=== PATIENT | female | born 1950 | race Caucasian/White ===

== ENCOUNTER → 2017-09-29 12:49 | Outpatient (CLI) | payer MEDICARE ==
[2010-04-10 08:49] VITALS: BMI 27.5
== END | disposition home or self-care (01) ==
LOC: D.RAD 12:49
DX: R13.12 Dysphagia, oropharyngeal phase (principal)

== ENCOUNTER → 2017-11-11 08:36 | Outpatient (CLI) | payer MEDICARE ==
[2010-04-10 08:49] VITALS: BMI 27.5
== END | disposition home or self-care (01) ==
LOC: D.RAD 08:36
DX: R13.10 Dysphagia, unspecified (principal)

== ENCOUNTER → 2018-08-18 21:38 | Outpatient (CLI) | payer MEDICARE ==
[2010-04-10 08:49] VITALS: BMI 27.5
== END | disposition home or self-care (01) ==
LOC: D.MAMMO 13:00
DX: Z12.31 Encounter for screening mammogram for malignant neoplasm of breast (principal)

== ENCOUNTER → 2020-11-07 10:13 | Outpatient (CLI) | payer MEDICARE ==
[2020-06-21 13:11] VITALS: BMI 28.3
[~2020-11-07 10:13] MED LIST: ASPIRIN81 MG PO; BISOPROLOL-HCT1 EAC1 PO; DECADRON4 MG PO; PRAVACHOL20 MG PO; TESSALON PERLE100 MG PO; VENTOLIN HFA [SP8 GM INH; ZETIA10 MG PO
== END | disposition home or self-care (01) ==
LOC: D.RT 10:00
PROVIDERS: ATTEND Internal Medicine Pulmonary Disease
DX: J44.9 Chronic obstructive pulmonary disease, unspecified (principal)

== ENCOUNTER → 2020-12-06 14:14 | Outpatient (CLI) | payer MEDICARE ==
[2020-06-21 13:11] VITALS: BMI 28.3
== END | disposition home or self-care (01) ==
LOC: D.CT 14:14
PROVIDERS: ATTEND Internal Medicine Pulmonary Disease
DX: R91.1 Solitary pulmonary nodule (principal)

== ENCOUNTER 2020-12-19 05:27 | Day surgery (SDC) | payer MEDICARE ==
--- NOTE | 2020-12-18 15:16 | NUR ---
APPOINTMENT CONFIRMED
[~2020-12-19] VITALS: Ht 160 cm; Wt 77.3 kg
[2020-12-19 05:49] LABS: BASOPHILS 0.3 % (0-2); EOSINOPHILS 1.6 % (0-7); HEMATOCRIT 39.7 % (36.0-48.0); HEMOGLOBIN 12.5 g/dL (12-16); IMMATURE GRANULOCYTES 0.2 % (0-5); LYMPHOCYTE ABS# 1.63 10x3/uL (1.18-3.74); LYMPHOCYTES 18.5 % (15-50); MCH 27.1 pg (26.0-34.0); MCHC 31.5 g/dL (31.0-37.0); MCV 85.9 fL (80.0-100.0); MEAN PLATELET VOLUME 9.1 fL (7.4-10.4); NEUTROPHILS 70.4 % (40-80); RBC 4.62 10x6/uL (4.00-5.40); RDW 16.5 % (11.5-14.5); WBC 8.8 10x3/uL (4.8-10.8)
[2020-12-19 05:52] LABS: PLATELET COUNT 223 10x3/uL (130-400)
[2020-12-19 05:59] LABS: INR 1.07 (0.85-1.17); PROTIME 12.8 SECONDS (11.6-15.0)
[2020-12-19 06:00] LABS: APTT 34.8 SECONDS (22.8-39.4)
[2020-12-19 06:01] LABS: ANION GAP 12.3 mmol/L (8-16); CALCIUM 9.8 mg/dL (8.5-10.1); CARBON DIOXIDE 28.8 mmol/L (21.0-32.0); CREATININE - SERUM 1.1 mg/dL (0.6-1.3); POTASSIUM - SERUM 4.1 mmol/L (3.5-5.1)
[2020-12-19] MEDS ORDERED: VICTOZA0.6 MG/0.1 SQ (06:38)
[2020-12-19] MEDS ORDERED: GLIMEPIRIDE4 MG PO (06:39)
[2020-12-19] MEDS ORDERED: DULERA 200 MCG8.8 GM INH (06:39)
[2020-12-19] MEDS ORDERED: PRENAVITE1 TAB PO (06:40)
[2020-12-19] MEDS ORDERED: ZIAC 5-6.25 MG1 TAB PO (06:40)
[2020-12-19] MEDS ORDERED: MERIBIN5 MG PO (06:40)
[2020-12-19] MEDS ORDERED: IMODIUM2 MG PO (06:41)
[2020-12-19] MEDS ORDERED: RESTORIL15 MG PO (06:41)
[2020-12-19] MEDS ORDERED: OMEPRAZOLE40 MG PO (06:41)
[2020-12-19] MEDS ORDERED: CELEBREX200 MG PO (06:41)
[2020-12-19] MEDS ORDERED: VITAMIN D325 MC1 PO (06:42)
[2020-12-19] MEDS ORDERED: ASCORBIC ACID500 MG PO ×2 (06:42)
[2020-12-19 06:48] VITALS: Ht 160 cm; Wt 77.3 kg
--- NOTE | 2020-12-19 09:47 | NUR ---
PT DOES NOT NEED TO BE NPO PER SPECIALS NURSE
--- NOTE | 2020-12-19 12:20 | NUR ---
PT IS RESTING QUIETLY IN BED. DENIES PAIN/NEEDS AT THIS TIME. WILL CONTINUE TO MONITOR.
--- NOTE | 2020-12-19 13:00 | NUR ---
DC INSTRUCTIONS GIVEN TO PT. STATES UNDERSTANDING. DC'D IV CATH FULLY INTACT.
--- NOTE | 2020-12-19 13:39 | NUR ---
PT LEFT UNIT VIA WC AT 1335
== END 2020-12-19 13:35 | disposition home or self-care (01) ==
LOC: D.SP 05:27 → D.CT 08:00 → D.SP 13:35
PROVIDERS: ATTEND Radiology Diagnostic Radiology
DX: R91.1 Solitary pulmonary nodule (principal)

== ENCOUNTER → 2021-01-02 09:31 | Outpatient (CLI) | payer MEDICARE ==
[2020-12-19 06:48] VITALS: BMI 30.1
[~2021-01-02 09:31] MED LIST changes: +ASCORBIC ACID500 MG PO; +CELEBREX200 MG PO; +DULERA 200 MCG8.8 GM INH; +GLIMEPIRIDE4 MG PO; +IMODIUM2 MG PO; +MERIBIN5 MG PO; +OMEPRAZOLE40 MG PO; +PRENAVITE1 TAB PO; +RESTORIL15 MG PO; +VICTOZA0.6 MG/0.1 SQ; +VITAMIN D325 MC1 PO; +ZIAC 5-6.25 MG1 TAB PO
--- NOTE | 2021-01-04 13:51 | TEE ---
PATIENT:SILVA BARKSDALE MEDICAL RECORD: [id number] LOCATION:D.[facility] AGE OF PATIENT: 70 ADMISSION DATE: 01/02/21 SEX: F REFERRING PHYSICIAN: INTERPRETING PHYSICIAN: BETZY JOHNSON MD TRANSESOPHAGEAL ECHOCARDIOGRAM Date: HESHAM CHARGE INDICATIONS: PREMEDICATIONS: PATIENT'S RESPONSE PROCEDURE DOPPLER MEASUREMENTS: LVIT LA PA RA LVOT RVOT Asc. Ao AV Gradient Peak AV Mean AV Area MV Gradient Peak MV Mean MV Area INTERPRETATION: Doppler: 2-D: COLOR FLOW DOPPLER NORMAL SALINE STUDY: MISCELLANOUS: DIAGNOSIS: PLAN: Community Facilitator: Special Police: COMMENTS: DATE OF SERVICE: 01/02/2021 NUCLEAR STRESS TEST Gated is normal with normal wall motion, normal wall thickening, calculated EF 68%. SPECT imaging: SPECT imaging was performed. Short axis view shows a fixed defect from the inferior base down the mid inferior wall without significant reversibility. This confirmed the horizontal axis with a fixed defect from the TRANSESOPHAGEAL ECHOCARDIOGRAM REPORT [id number] LENORE BARKSDALE inferior base down the mid inferior wall. Vertical axis shows good uptake along the lateral wall and septum. FINAL IMPRESSION: 1. Normal gated, normal wall motion, normal EF 68%. 2. Abnormal SPECT imaging with a fixed inferior base that takes in the mid inferior wall defect without significant reversibility. IMPRESSION: The scan is consistent with a previous history of coronary artery disease. No active ischemia is seen. LV function remains normal. Continued medical management and risk factor modification is recommended. TRANSINT:[id number] Voice Confirmation ID: [id number] DOCUMENT ID: [id number] at 1351 CC: [id number] DICTATION DATE: 01/03/21 09 BATTER MIXER HELPER: 01/04/21 0235 [facility] CLI 01/02/21 [id number] [place] [address]
== END | disposition home or self-care (01) ==
LOC: D.MRI 09:31
PROVIDERS: ATTEND Internal Medicine Interventional Cardiology
DX: C80.1 Malignant (primary) neoplasm, unspecified (principal); Z01.818 Encounter for other preprocedural examination

== ENCOUNTER 2021-01-10 13:35 | Inpatient (IN) | payer MEDICARE ==
[~2021-01-10] VITALS: Ht 160 cm; Wt 73.4 kg
[~2021-01-10 13:35] MED LIST changes: +BISOPROLOL/HCTZ; -ZIAC 5-6.25 MG1 TAB PO
[2021-01-10] MEDS ORDERED: GALZIN50 MG PO (14:11)
[2021-01-10] MEDS ORDERED: TEMOVATE 0.05%15 G1 TOPICAL (14:12)
[2021-01-10] MEDS ORDERED: CLOTRIMAZOLE-BE30 ML TOPICAL (14:12)
[2021-01-10] MEDS ORDERED: SYNALAR 0.01 %60 ML TOPICAL (14:13)
[2021-01-10] MEDS ORDERED: DIFLUCAN100 MG PO (14:14)
[2021-01-10] MEDS ORDERED: NYSTATIN100000 UN4 PO (14:15)
[2021-01-10] MEDS ORDERED: DULERA 200 MCG8.8 GM INH (14:16)
[2021-01-10 16:05] LABS: HEMATOCRIT 37.9 % (36.0-48.0); HEMOGLOBIN 12.4 g/dL (12-16); MCH 27.5 pg (26.0-34.0); MCHC 32.7 g/dL (31.0-37.0); MCV 83.9 fL (80.0-100.0); MEAN PLATELET VOLUME 6.9 fL (7.4-10.4); RBC 4.51 10x6/uL (4.00-5.40); WBC 9.1 10x3/uL (4.8-10.8)
[2021-01-10 16:18] LABS: INR 1.15 (0.85-1.17); PROTIME 13.6 SECONDS (11.6-15.0)
[2021-01-10 16:19] LABS: APTT 33.7 SECONDS (22.8-39.4)
[2021-01-10 16:24] LABS: ALBUMIN 3.8 g/dL (3.4-5.0); ANION GAP 9.9 mmol/L (8-16); BILIRUBIN - TOTAL 0.2 mg/dL (0.2-1.3); CALCIUM 9.2 mg/dL (8.5-10.1); CARBON DIOXIDE 31.8 mmol/L (21.0-32.0); CREATININE - SERUM 1.1 mg/dL (0.6-1.3); POTASSIUM - SERUM 3.7 mmol/L (3.5-5.1)
[2021-01-10 17:12] LABS: BILIRUBIN NEGATIVE (NEGATIVE); KETONE NEGATIVE (NEGATIVE); NITRITE NEGATIVE (NEGATIVE); UROBILINOGEN NORMAL mg/dL (< 2)
[2021-01-12] VITALS (57 sets, daily range): BP systolic 91–137; BP diastolic 43–81; BMI 30.5
--- NOTE | 2021-01-12 11:21 | NUR ---
1017: REC'D TO ROOM CV 03 VIA BED. AROUSES TO VERBAL STIMULI. CONNECTED TO MONITOR AND VS OBTAINED. SEE FLOWSHEET FOR VS AND ASSESSMENT.
[2021-01-13] VITALS (90 sets, daily range): BP systolic 94–144; BP diastolic 25–97
[2021-01-13 05:27] LABS: HEMATOCRIT 34.4 % (36.0-48.0); HEMOGLOBIN 11.4 g/dL (12-16); MCH 27.5 pg (26.0-34.0); MCHC 33.1 g/dL (31.0-37.0); MCV 83.1 fL (80.0-100.0); MEAN PLATELET VOLUME 6.7 fL (7.4-10.4); RBC 4.14 10x6/uL (4.00-5.40); WBC 11.9 10x3/uL (4.8-10.8)
[2021-01-13 05:47] LABS: ANION GAP 10.2 mmol/L (8-16); BILIRUBIN - TOTAL 0.51 mg/dL (0.2-1.3); CALCIUM 8.2 mg/dL (8.5-10.1); CARBON DIOXIDE 29.6 mmol/L (21.0-32.0); CREATININE - SERUM 1.1 mg/dL (0.6-1.3); POTASSIUM - SERUM 3.8 mmol/L (3.5-5.1); PROTEIN - SERUM 6.7 g/dL (6.4-8.2)
--- NOTE | 2021-01-13 07:30 | OP ---
PATIENT NAME: SILVA BARKSDALE MEDICAL RECORD: [id number] :54 [id number] AD[facility] DATE:01/12/21 SURGEON: KAHI FAN MD DATE OF OPERATION: 01/12/2021 SURGEON: Khai Fan MD. PROCEDURES PERFORMED: 1. Right lower lobe lobectomy. 2. Mediastinal lymph node dissection. 3. Bronchoscopy. PREOPERATIVE DIAGNOSIS: Non-small cell lung cancer. POSTOPERATIVE DIAGNOSIS: Squamous cell carcinoma, superior segment, right lower lobe, T2N0M0. ANESTHESIA: Double lumen general endotracheal anesthesia and epidural. BLOOD LOSS: 25 mL. SPECIMENS: 1. Wedge resection of the tumor for frozen section. 2. Right lower lobe lobectomy. 3. Lymph nodes from anterior lobar and superior hilar, no sizable lymph node seen in the subcarinal or inferior pulmonary ligament region nor in the paratracheal lymph node station. POSTOPERATIVE CONDITION: Stable. COMPLICATIONS: None. DISPOSITION: ICU. OPERATIVE FINDINGS: 1. Bronchoscopy with no endobronchial tumors. Good double lumen endotracheal tube position, subsequently repositioned after opening the chest. 2. Frozen section, squamous cell carcinoma. The tumor dimpled the visceral pleura, but was not attached to the parietal pleura and there was no pleural effusion. 3. Bronchus airtight under water. 4. The lymph nodes appeared to be anthracotic, there was no torsion of the middle lobe, the lung filled the chest well. 5. Cryotherapy posterior 4 through 8 nerve root. INDICATION: Lung cancer. PROCEDURE IN DETAIL: The patient was brought to the operating suite. General anesthesia was obtained. The patient was turned to left lateral decubitus position with appropriate padding. Right lung was deflated. Right posterolateral thoracotomy incision was made. Subcutaneous tissue and muscle layer were divided and then muscles were retracted anteriorly. The small section of the posterior 6th rib was resected to allow a trapdoor type thoracotomy and the pleural cavity was entered. The tumor fell away from the chest wall. No involvement of the parietal pleura. The superior segment had OPERATIVE REPORT [id number] SILVA BARKSDALE good fissures and therefore wedge resection was performed with stapling device. It returned squamous cell carcinoma. The pulmonary artery was dissected out and the fissure branches to the lower lobe were divided. Inferior pulmonary vein was divided after confirming the presence of the middle lobe drainage to the upper pulmonary vein and then the bronchus was clamped. The lung inflated, bronchus divided. After removing the tumor, lymph nodes were taken. The lung was reinflated. It was airtight. One single pledgeted stitch at the hilum was performed. Progel was used along the hilum as well. Chest tubes were placed anteriorly and posteriorly. Chest was closed with pericostals, 2 running, muscle layers, subcutaneous and subcuticular. The patient in supine, extubated, stable to ICU. TRANSINT:[id number] Voice Confirmation ID: [id number] DOCUMENT ID: [id number] KHAI FAN MD at 0730 CC: CHAD CALIXTO MD and HUDSON HODGSON [id number] DICTATION DATE: 01/12/21 1453 IT FIELD TECHNICIAN: 01/13/21 0202 ADM IN [facility] [address] [id number]
--- NOTE | 2021-01-13 10:46 | NUR ---
1015: L RADIAL ARTERIAL LINE DC'D. MANUAL PRESSURE HELD UNTIL BLEEDING STOPPED. SITE DRESSED WITH 2X2 AND TEGADERM. 1030: R CHEST TUBES REDRESSED. SITES CLEANED WITH BETADINE. BETADINE OINTMENT AND 4X4S APPLIED AND SECURED WITH TEGADERM.
[2021-01-14] VITALS (89 sets, daily range): BP systolic 82–137; BP diastolic 31–60
[2021-01-14 05:07] LABS: HEMATOCRIT 33.5 % (36.0-48.0); MCH 27.6 pg (26.0-34.0); MCHC 32.8 g/dL (31.0-37.0); MCV 84.3 fL (80.0-100.0); MEAN PLATELET VOLUME 6.7 fL (7.4-10.4); RBC 3.98 10x6/uL (4.00-5.40); RDW 16.7 % (11.5-14.5); WBC 11.9 10x3/uL (4.8-10.8)
[2021-01-14 05:22] LABS: ALBUMIN 2.9 g/dL (3.4-5.0); ANION GAP 8.2 mmol/L (8-16); BILIRUBIN - TOTAL 0.87 mg/dL (0.2-1.3); CALCIUM 8.7 mg/dL (8.5-10.1); CARBON DIOXIDE 31.6 mmol/L (21.0-32.0); CREATININE - SERUM 0.9 mg/dL (0.6-1.3); POTASSIUM - SERUM 3.8 mmol/L (3.5-5.1)
--- NOTE | 2021-01-14 23:51 | NUR ---
BLOOD GLUCOSE WAS 44, GAVE APPLE JUICE WITH 1 PACK SUGAR, GLUCOSE RECHECK WAS 58, GAVE APPLE JUICE WITH 2 PACKS SUGAR, GLUCOSE RECHECK WAS 44 AGAIN, GAVE DEXTROSE IV, WILL CHECK BLOOD GLUCOSE IN 1 HOUR. PATIENT IS AOx4, VSS.
[2021-01-15] VITALS (34 sets, daily range): BP systolic 96–130; BP diastolic 42–78
[2021-01-15 05:34] LABS: HEMATOCRIT 34.1 % (36.0-48.0); HEMOGLOBIN 11.3 g/dL (12-16); MCH 27.9 pg (26.0-34.0); MCHC 33.1 g/dL (31.0-37.0); MCV 84.1 fL (80.0-100.0); RBC 4.06 10x6/uL (4.00-5.40); RDW 16.7 % (11.5-14.5); WBC 13.2 10x3/uL (4.8-10.8)
[2021-01-15 05:54] LABS: ALBUMIN 2.8 g/dL (3.4-5.0); ANION GAP 11.8 mmol/L (8-16); BILIRUBIN - TOTAL 0.7 mg/dL (0.2-1.3); CARBON DIOXIDE 29.1 mmol/L (21.0-32.0); POTASSIUM - SERUM 3.9 mmol/L (3.5-5.1); PROTEIN - SERUM 7.3 g/dL (6.4-8.2)
--- NOTE | 2021-01-15 06:41 | NUR ---
PT BLOOD GLUCOSE 56, GIVEN 1 AMP DEXTROSE, GLUCOSE RECHECK WAS 115, PAGED DR FAN TO UPDATES, AWAITING RETURN CALL
--- NOTE | 2021-01-15 07:10 | NUR ---
REPORT RECEIVED FROM POWDER LOADER AND PATIENT CARE ASSUMED. PATIENT LAYING IN BED ON BACK WITH EYES CLOSED AND BREATHING EVENLY. O2 SAT 92 % WITH ROOM AIR. PATIENT NON COMPLIANT WITH NC. VSS. ALL LINES TUBES DRAINS CHECKED AND PATENT. WALKER DRAINING TO GRAVITY CLEAR YELLOW URINE. WILL CONTINUE WITH PLAN OF CARE. SR UP X 2 BED IN LOW POSITION AND CALL LIGHT IN REACH.
--- NOTE | 2021-01-15 08:00 | NUR ---
PATIENT IS AWAKE, ALERT AND ORIENTED X 4. PATIENT COMPLAINS OF NAUSEA. MEDICATED WITH ZOFRAN PER OCT ORDER. REPOSITONED PATIENT ENCOURAGED INCENTIVE SPIROMETER AND DEEP BREATHE AND COUGH. PATIENT STATES THAT SHE JUST DOSNET FEEL GOOD TODAY. DENIES ANY PAIN. PATIENT DID NOT EAT ANY BREAKFAST. ATTEMPTED TO BRING OTHER FOODS OR DRINKS PATIENT DECLINED. WILL CONTINUE TO MONITOR. SR UP X 2 BED IN LOW POSITION AND CALL LIGHT IN REACH.
--- NOTE | 2021-01-15 08:40 | NUR ---
PATIENT STATES SANTOSH DID HELP. WILL CONTINUE TO MONITOR. SR UP X 2 BED IN LOW POSITION AND CALL LIGHT IN REACH.
--- NOTE | 2021-01-15 09:49 | NUR ---
DR PARMAR IN ROOM. NEW ORDERS RECEIVED.
--- NOTE | 2021-01-15 12:35 | NUR ---
PATIENT SITTING UP IN BED DRINKING ENSURE. PATIENT STATES NOT HUNGRY. DENIES NAUSEA. ENCOURAGED PATIENT TO DRINK ENSURE IN ITS ENTIRITY AND USE INCENTIVE SPIROMETRY. DTR AT BS. WILL CONTINUE TO MONITOR. SR UP X 2 BED IN LOW POSITION AND CALL LIGHT IN REACH.
--- NOTE | 2021-01-15 15:05 | NUR ---
DR PLATA REMOVED CHEST TUBES WITHOUT DIFFICULTY VASELINE DRSG APPLIED WITH GUAZE AND TAPE COVERING. PATIENT TOLERATED WELL. AWIATING CXR . PATIENT DENIES ANY NEEDS OR PAIN. SR UP X 2 BED IN LOW POSITION AND CALL LIGHT IN REACH.
--- NOTE | 2021-01-15 16:26 | NUR ---
ANESTHESIA IN ROOM. EPIDURAL DCD WITHOUT DIFFICULTY. NO BLEEDING NOTED. PATIENT TOLERATED WELL. VSS. PATIENT DENIES ANY NEEDS OR PAIN. PATIENT DECLINED BATH TODAY STATING THAT SHE IS TIRED. WILL CONTINUE TO MONITOR. SR UPX 2 BED IN LOW POSITION AND CALL LIGHT IN REACH.
--- NOTE | 2021-01-15 18:00 | NUR ---
PATIENT CONTINUED TO REFUSE BATH. DID A COMPLETE LINEN CHANGE AND RUBBED PATIENT DOWN WITH LOTION. PATIENT THANKS THIS NURSE FOR CARE. PATIENT DENIES ANY NEEDS OR PAIN. VSS. WILL CONTINUE TO MONITOR. SR X 2 BED LOW POSITION AND CALL LIGHT IN REACH.
--- NOTE | 2021-01-15 18:45 | NUR ---
Plasmalyte infusing at 30ml and Neosynephrine at 0.5 mg at shift start. Infusions stopped due to order discontinuation. BP adequate, will continue to monitor patient status. See flowsheets for details.
--- NOTE | 2021-01-15 18:46 | NUR ---
Correction to previous note: Neosynephrine infusing at 0.5 mcg/kg/min at shift change.
--- NOTE | 2021-01-15 19:38 | NUR ---
Patient alert and expresses feeling down about her current situation. Asked to call her son Claudy for her and give update. Contacted Claudy by telephone, expressed patient's concerns and wishes for him to visit, update given on patient status. Visiting hours and information provided, verbalized understanding and intent to visit. Discussed with patient, verbalized appreciation. Reassurance given, plan of care discussed.
--- NOTE | 2021-01-15 21:17 | NUR ---
Environmental modifications made for patient comfort, blanket applied. Patient states she is "not in a good mood right now" regarding her hospitalization and current health status. Declines to elaborate. States she just wants to sleep right now. Options discussed regarding requesting anxiolytic from doctor, patient declines states she doesn't want to take any medication like that right now because she is afraid it will worsen her mood. Benefits of medication and side effects discussed, patient verbalizes understanding, declines at this time. Instructed to notify nurse of concerns/needs.
--- NOTE | 2021-01-15 23:10 | NUR ---
Dr. Shane returned page. Orders received related to tachycardia. Patient informed of plan of care.
[2021-01-16] VITALS (23 sets, daily range): BP systolic 88–148; BP diastolic 51–96; Ht 160 cm; Wt 73.4 kg
--- NOTE | 2021-01-16 06:30 | NUR ---
Shift summary: Pain controlled with prn Percocet, patient denies any needs. HR WNL. Encouraged to use incentive spirometer and turn, cough, and deep breathe.
[2021-01-16 07:10] LABS: ALBUMIN 2.6 g/dL (3.4-5.0); ANION GAP 13.8 mmol/L (8-16); BILIRUBIN - TOTAL 0.59 mg/dL (0.2-1.3); CALCIUM 8.8 mg/dL (8.5-10.1); CARBON DIOXIDE 26.8 mmol/L (21.0-32.0); CREATININE - SERUM 0.9 mg/dL (0.6-1.3); POTASSIUM - SERUM 3.6 mmol/L (3.5-5.1); PROTEIN - SERUM 7.1 g/dL (6.4-8.2)
[2021-01-16 07:12] LABS: BASOPHILS 0.6 % (0-2); EOSINOPHILS 1.9 % (0-7); HEMATOCRIT 33.9 % (36.0-48.0); HEMOGLOBIN 11.1 g/dL (12-16); MCH 27.8 pg (26.0-34.0); MCHC 32.7 g/dL (31.0-37.0); MCV 85.1 fL (80.0-100.0); NEUTROPHILS 77.5 % (40-80); PLATELET COUNT 217 10x3/uL (130-400); RBC 3.98 10x6/uL (4.00-5.40); RDW 16.7 % (11.5-14.5); WBC 10.3 10x3/uL (4.8-10.8)
--- NOTE | 2021-01-16 07:40 | NUR ---
assisted pt up to recliner, tolerated well, breakfast tray served and call light in reach, will monitor
--- NOTE | 2021-01-16 09:10 | NUR ---
son at bedside
--- NOTE | 2021-01-16 11:30 | NUR ---
carrasco catheter DC'd at this time, pt sitting up in recliner with call light in reach, will monitor
--- NOTE | 2021-01-16 12:35 | NUR ---
assisted pt back to bed, tolerated well, call light in reach
--- NOTE | 2021-01-16 13:45 | NUR ---
ambulating in villalobos, tolerated well, pt back in bed, no needs voiced, call light in reach, will monitor
[2021-01-16] MEDS ORDERED: PERCOCET 5-3251 TAB PO (13:57)
--- NOTE | 2021-01-16 17:00 | NUR ---
sitting up in bed eating dinner, no needs voiced, call light in reach, will maria luz
[2021-01-17] VITALS (9 sets, daily range): BP systolic 110–140; BP diastolic 57–99
--- NOTE | 2021-01-17 04:30 | NUR ---
Shift summary: No change in patient status. Ambulated to restroom with standby assist. Encouraged to continue use of incentive spirometer and TCDB. Pain controlled with prn administration.
[2021-01-17 06:55] LABS: HEMATOCRIT 33.2 % (36.0-48.0); HEMOGLOBIN 10.7 g/dL (12-16); MCH 27.4 pg (26.0-34.0); MCHC 32.1 g/dL (31.0-37.0); MCV 85.2 fL (80.0-100.0); MEAN PLATELET VOLUME 7.3 fL (7.4-10.4); RBC 3.89 10x6/uL (4.00-5.40); RDW 16.4 % (11.5-14.5); WBC 11.4 10x3/uL (4.8-10.8)
[2021-01-17 07:13] LABS: ALBUMIN 2.6 g/dL (3.4-5.0); ANION GAP 13.5 mmol/L (8-16); BILIRUBIN - TOTAL 0.53 mg/dL (0.2-1.3); CARBON DIOXIDE 25.2 mmol/L (21.0-32.0); CREATININE - SERUM 0.9 mg/dL (0.6-1.3); POTASSIUM - SERUM 3.7 mmol/L (3.5-5.1); PROTEIN - SERUM 7.2 g/dL (6.4-8.2)
--- NOTE | 2021-01-17 07:20 | NUR ---
ASSISTED PT UP TO TOILET AND THEN TO RECLINER, TOLERATED WELL, NO NEEDS VOICED, CALL LIGHT IN REACH, WILL MONITOR
--- NOTE | 2021-01-17 08:35 | NUR ---
DR FAN HERE SEEING PATIENT
--- NOTE | 2021-01-17 09:30 | NUR ---
CVL DC'D AT THIS TIME
--- NOTE | 2021-01-17 10:10 | NUR ---
PT DISCHARGED HOME WITH SON PRESENT, DISCHARGE INSTRUCTIONS GIVEN AND MEDICATIONS EXPLAINED, PT VERBALIZES UNDERSTANDING, NO DISTRESS NOTED, BELONGINGS SENT WITH PATIENT
--- NOTE | 2021-01-17 16:05 | MORECARE ---
CASE MANAGEMENT DISCHARGE SUMMARY PATIENT: SILVA BARKSDALE UNIT: [id number] ADM DATE: 01/12/21 AGE: 70 : 52 SEX: F ROOM/BED: [facility] AUTHOR: INDRADOC PHYSICIAN: REFERRING PHYSICIAN: HOME FAN MD DATE OF SERVICE: 01/17/21 Case Management Discharge Planning Summary DCP REVIEW SUMMARY ANTICIPATED D/C DATE: 01/17/2021 EXPECTED LOS : 5 CASE STATUS: DCP Initiated INITIAL REVIEW: 01/12/2021 INITIAL REVIEWER: Paula Coyne FINAL DISCHARGE DISPOSITION: : FINAL REVIEWER: FINAL REVIEW DATE: DCP Focus Questions & Answers DCP Screen QUESTION: ANSWER High Risk Factors: : None Walking limitation: Patient stated self rated walking limitation present? : No Age: : 65 - 81 Prior living environment: : Lives with others Disability ranking: : Grade 1: No significant disability DCP Evaluation QUESTION: ANSWER Patient's ability to cope with chronic illness : a. Adequate (0-3 ED visits in 6 mos., adequate financial resources, attends scheduled appts.) Patient's current cognitive status: : *Oriented to person, place, situation, time and present Family / Caregiver's ability to cope with chronic illness: : a. Adequate (ability to meet patient's medical needs, ensures patient attends medical appts.) Patient and/or caregiver agree upon recommended discharge plan? : Yes Physical Status: : Independent with ADL's Family / Caregiver's ability to cope with chronic illness: : a. Adequate (ability to meet patient's medical needs, ensures patient attends medical appts.) Functional screen assessment: : Basic needs can adequately be met by self Does the patient have the ability to pay for or attain post discharge needs / services? : Yes Living Arrangements: : Home with Spouse/Significant Other Is there a likelihood that the patient will require additional services to return to the preadmission environment? : No Equipment needed for post hospitalization: : None Baseline cognitive status: : *Oriented to person, place, situation, time and present Patient with capacity for self-care or can be cared for in same environment as prior to hospitalization? : Yes Results of this evaluation have been discussed with: : Patient Preadmission facility can/cannot provide post hospital level of care needs: : Can - at same level of care as preadmission Physical environment modification needed / anticipated for discharge: : No Medication Management: : Patient states can afford medications Pharmacy name(s): : [facility] Planned post hospital services available for patient? : N/A Does Patient have transportation to get home and to follow-up medical appointments when discharged from the hospital? : Yes Planned post hospital services covered by insurance plan? : N/A Would patient like to participate in any Care Coordination programs (if applicable): : Not applicable Does the patient have electricity at home? : Yes Other Care Coordination programs/comments: : Home, no needs Does the patient have running water in their house? : Yes Equipment in use: : Bedside Commode Equipment in use: : Cane - Single Leg Equipment in use: : Shower Chair Equipment in use: : Walker - Rolling Equipment in use: : Wheelchair Mental health screen: : No mental health history Psychosocial status: : Independent adult (65+) Abuse/Neglect: : None Resources / Services in place: : None DCP Re-evaluation QUESTION: ANSWER Would patient like to participate in any Care Coordination programs (if applicable): : Not applicable PATIENT: SILVA BARKSDALE ENCOUNTER: [id number] MEDICAL RECORD#: [id number] ADMISSION DATE: 01/12/2021 DISCHARGE DATE: 01/17/2021 ATTENDING MD: HOME GUZMAN : AGE: 70 MARITAL STATUS: D DC PLAN ID: [id number] FACILITY: [facility] PRINTED ON: 01/17/21 16:05 CT All edits/amendments must be made on the electronic document DICTATION DATE: 01/17/21 1605 SOCIAL PROFESSIONALS: TAMI 01/17/21 1605 RPT#: [id number] DC DATE:01/17/21 STATUS: DIS IN [facility] [address] [place] [address] END OF REPORT
--- NOTE | 2021-01-17 16:35 | MORECARE ---
CASE MANAGEMENT DISCHARGE SUMMARY PATIENT: SILVA BARKSDALE UNIT: [id number] ADM DATE: 01/12/21 AGE: 70 : 52 SEX: F ROOM/BED: D.[facility] AUTHOR: INDRA,DOC PHYSICIAN: REFERRING PHYSICIAN: HOME FAN MD DATE OF SERVICE: 01/17/21 Case Management Discharge Planning Summary COMMENTS ENTERED DATE: 01/17/21 16:04 CT COMMENT TYPE: Discharge Planning REVIEWER: Paula Coyne Late entry for 01/16/21 13:36 CM met with patient to discuss discharge planning / needs. CM discussed availability of home health, rehab services, and medical equipment. Patient states she has had home health in the past but does not feel like she needs it at this time. States she plans to discharge to home. States home environment is safe. Dr. Gutiérrez is her PCP. She uses [facility]. Denies any discharge needs at this time. CM explained and served DC IMM. Copy on chart. DCP REVIEW SUMMARY ANTICIPATED D/C DATE: 01/17/2021 EXPECTED LOS : 5 CASE STATUS: DCP Initiated INITIAL REVIEW: 01/12/2021 INITIAL REVIEWER: Paula Coyne FINAL DISCHARGE DISPOSITION: : FINAL REVIEWER: FINAL REVIEW DATE: DCP Focus Questions & Answers DCP Screen QUESTION: ANSWER High Risk Factors: : None Walking limitation: Patient stated self rated walking limitation present? : No Age: : 65 - 81 Prior living environment: : Lives with others Disability ranking: : Grade 1: No significant disability DCP Evaluation QUESTION: ANSWER Patient's ability to cope with chronic illness : a. Adequate (0-3 ED visits in 6 mos., adequate financial resources, attends scheduled appts.) Patient's current cognitive status: : *Oriented to person, place, situation, time and present Family / Caregiver's ability to cope with chronic illness: : a. Adequate (ability to meet patient's medical needs, ensures patient attends medical appts.) Patient and/or caregiver agree upon recommended discharge plan? : Yes Physical Status: : Independent with ADL's Family / Caregiver's ability to cope with chronic illness: : a. Adequate (ability to meet patient's medical needs, ensures patient attends medical appts.) Functional screen assessment: : Basic needs can adequately be met by self Does the patient have the ability to pay for or attain post discharge needs / services? : Yes Living Arrangements: : Home with Spouse/Significant Other Is there a likelihood that the patient will require additional services to return to the preadmission environment? : No Equipment needed for post hospitalization: : None Baseline cognitive status: : *Oriented to person, place, situation, time and present Patient with capacity for self-care or can be cared for in same environment as prior to hospitalization? : Yes Results of this evaluation have been discussed with: : Patient Preadmission facility can/cannot provide post hospital level of care needs: : Can - at same level of care as preadmission Physical environment modification needed / anticipated for discharge: : No Medication Management: : Patient states can afford medications Pharmacy name(s): : [facility] Planned post hospital services available for patient? : N/A Does Patient have transportation to get home and to follow-up medical appointments when discharged from the hospital? : Yes Planned post hospital services covered by insurance plan? : N/A Would patient like to participate in any Care Coordination programs (if applicable): : Not applicable Does the patient have electricity at home? : Yes Other Care Coordination programs/comments: : Home, no needs Does the patient have running water in their house? : Yes Equipment in use: : Bedside Commode Equipment in use: : Cane - Single Leg Equipment in use: : Shower Chair Equipment in use: : Walker - Rolling Equipment in use: : Wheelchair Mental health screen: : No mental health history Psychosocial status: : Independent adult (65+) Abuse/Neglect: : None Resources / Services in place: : None DCP Re-evaluation QUESTION: ANSWER Would patient like to participate in any Care Coordination programs (if applicable): : Not applicable PATIENT: SILVA BARKSDALE ENCOUNTER: [id number] MEDICAL RECORD#: [id number] ADMISSION DATE: 01/12/2021 DISCHARGE DATE: 01/17/2021 ATTENDING MD: HOME GUZMAN : AGE: 70 MARITAL STATUS: D DC PLAN ID: [id number] FACILITY: [facility] PRINTED ON: 01/17/21 16:35 CT All edits/amendments must be made on the electronic document DICTATION DATE: 01/17/21 1635 BOX FABRICATOR: TAMI 01/17/215 RPT#: [id number] DC DATE:01/17/21 STATUS: DIS IN [facility] [address] [place] [address] END OF REPORT
== END 2021-01-17 10:10 | disposition home or self-care (01) | DRG 164 ==
LOC: D.CVICU 01-12 05:03 → D.SDCHOLD 01-12 07:30 → D.CVICU 01-17 10:10
PROVIDERS: ADMIT Thoracic Surgery (Cardiothoracic Vascular Surgery); ATTEND Thoracic Surgery (Cardiothoracic Vascular Surgery)
PROC: 0BTF0ZZ Resection of Right Lower Lung Lobe, Open Approach (ICD-10-PCS; principal; 2021-01-12 07:30)
PROC: 07T70ZZ Resection of Thorax Lymphatic, Open Approach (ICD-10-PCS; 2021-01-12 07:30)
PROC: 0BJ08ZZ Inspection of Tracheobronchial Tree, Via Natural or Artificial Opening Endoscopic (ICD-10-PCS; 2021-01-12 07:30)
DX: C34.31 Malignant neoplasm of lower lobe, right bronchus or lung (principal); J98.11 Atelectasis; I25.10 Atherosclerotic heart disease of native coronary artery without angina pectoris; I10 Essential (primary) hypertension; E78.5 Hyperlipidemia, unspecified; K21.9 Gastro-esophageal reflux disease without esophagitis; F17.211 Nicotine dependence, cigarettes, in remission; Z79.84 Long term (current) use of oral hypoglycemic drugs; M19.90 Unspecified osteoarthritis, unspecified site; J43.9 Emphysema, unspecified; Z86.16 Personal history of COVID-19; D50.9 Iron deficiency anemia, unspecified; D72.829 Elevated white blood cell count, unspecified; E11.649 Type 2 diabetes mellitus with hypoglycemia without coma

== ENCOUNTER 2021-01-21 13:40 | Inpatient (IN) | payer MEDICARE ==
[~2021-01-21] VITALS: Ht 160 cm; Wt 76.7 kg
[2021-01-21] VITALS (22 sets, daily range): BP systolic 83–119; BP diastolic 46–64; BMI 29.1
[~2021-01-21 13:40] MED LIST changes: +CLOTRIMAZOLE-BE30 ML TOPICAL; +DIFLUCAN100 MG PO; +GALZIN50 MG PO; +NYSTATIN100000 UN4 PO; +PERCOCET 5-3251 TAB PO; +SYNALAR 0.01 %60 ML TOPICAL; +TEMOVATE 0.05%15 G1 TOPICAL
--- NOTE | 2021-01-21 14:10 | NUR ---
RIGHT CHEST VENOUS PORT ACCESSED WITH 20GA .75 INCH POWERLOC INFUSION SET. BLOOD OBTAINED FOR LAB. FLUSHED WITH 10MLS SALINE. FLUSHES WELL. OCCLUSIVE DRESSING APPLIED.
[2021-01-21 14:16] LABS: BASOPHILS 0 % (0-2); EOSINOPHILS 0.4 % (0-7); HEMATOCRIT 33.6 % (36.0-48.0); HEMOGLOBIN 10.7 g/dL (12-16); IMMATURE GRANULOCYTES 0.3 % (0-5); LYMPHOCYTE ABS# 0.42 10x3/uL (1.18-3.74); LYMPHOCYTES 5.9 % (15-50); MCH 27.6 pg (26.0-34.0); MCHC 31.8 g/dL (31.0-37.0); MCV 86.8 fL (80.0-100.0); MEAN PLATELET VOLUME 9.2 fL (7.4-10.4); MONOCYTES 1.4 % (2-11); NEUTROPHIL ABS# 6.51 10x3/uL (1.56-6.13); RBC 3.87 10x6/uL (4.00-5.40); WBC 7.1 10x3/uL (4.8-10.8)
[2021-01-21 14:24] LABS: APTT 30.4 SECONDS (22.8-39.4); INR 1.24 (0.85-1.17); PROTIME 14.5 SECONDS (11.6-15.0)
[2021-01-21 14:44] LABS: ALKALINE PHOSPHATASE 100 U/L (30-120); ALT (SGPT) 16 U/L (10-68); CALC OSMOLALITY 283 mosm/kg (275-300); CALCIUM 8.9 mg/dL (8.5-10.1); CHLORIDE - SERUM 104 mmol/L (98-107); CKMB 8.8 U/L (0.0-3.6); CREATINE KINASE 37 UL (21-215); CREATININE - SERUM 0.9 mg/dL (0.6-1.3); GLUCOSE 181 mg/dL (74-106); POTASSIUM - SERUM 3.2 mmol/L (3.5-5.1); PRO BNP 225 pg/mL (0-125); PROTEIN - SERUM 7.5 g/dL (6.4-8.2); SODIUM 139 mmol/L (136-145); UREA NITROGEN 15 mg/dL (7-18); eGFR NON AFRICAN AMERICAN 66 mL/min (90-120)
[2021-01-21 14:46] LABS: TROPONIN-I < 0.017 ng/mL (0.000-0.060)
[2021-01-21 14:51] LABS: BILIRUBIN NEGATIVE (NEGATIVE); KETONE NEGATIVE mg/dL (< 1+); NITRITE NEGATIVE (NEGATIVE); PH 5.5 (5.0-8.0); SQUAMOUS EPITHELIAL 1 HPF (0-4); UROBILINOGEN NORMAL mg/dL (< 2); WHITE CELLS - URINE 1 HPF (0-4)
--- NOTE | 2021-01-21 14:52 | NUR ---
FSBS 208
[2021-01-21 14:53] LABS: ALBUMIN 2.9 g/dL (3.4-5.0); CARBON DIOXIDE 18.7 mmol/L (21.0-32.0)
[2021-01-21 15:02] LABS: PLATELET COUNT 344 10x3/uL (130-400)
--- NOTE | 2021-01-21 15:02 | NUR ---
BP CUFF OFF D/T MULTIPLE ATTEMPTS AT OBTAINING IV ACCESS, ABG'S AND LAB DRAWS. ALL ATTEMPTS WITHOUT SUCCESS.
--- NOTE | 2021-01-21 15:43 | NUR ---
FAMILY REQUESTS TO POSTPONE ENEMA AT THIS TIME D/T LARGE BM.
--- NOTE | 2021-01-21 16:40 | NUR ---
STROKE BAND #[id number] PER PROTOCOL FOR WEAKNESS AND AMS
[2021-01-21 17:11] LABS: CKMB 6.7 U/L (0.0-3.6); CREATINE KINASE 47 UL (21-215); TROPONIN-I < 0.017 ng/mL (0.000-0.060)
--- NOTE | 2021-01-21 17:50 | NUR ---
1655: REC'D TO ROOM CV 08. TRANSFERRED BY TOTAL LIFT TO ICU BED. CONNECTED TO MONITOR AND VS OBTAINED. SEE FLOWSHEET FOR ASSESSMENT.
--- NOTE | 2021-01-21 18:06 | NUR ---
ASSISTED TO BEDSIDE COMMODE REQUIRE>50% ASSIST--
--- NOTE | 2021-01-21 18:14 | NUR ---
TO CT VIA BED.
--- NOTE | 2021-01-21 18:33 | NUR ---
RETURN FROM CT VIA BED
--- NOTE | 2021-01-21 19:07 | NUR ---
1851: DR. CALIXTO NOTIFIED OF RESULTS PHONED FROM RADIOLOGIST REGARDING CTA CHEST. 1908: DR. FAN NOTIFIED OF CT RESULTS AND CONDITION UPDATE GIVEN.
[2021-01-22] VITALS (26 sets, daily range): BP systolic 83–125; BP diastolic 44–74
[2021-01-22 00:59] LABS: CKMB 7.1 U/L (0.0-3.6); CREATINE KINASE 46 UL (21-215); TROPONIN-I 0.056 ng/mL (0.000-0.060)
--- NOTE | 2021-01-22 08:16 | NUR ---
LAB CALLED TO CHECK ON LAB RESULT. ONLY BLOOD AVAILABLE WAS FROM MIDNIGHT. REQUESTED FOR THEM TO COME DRAW MORNING LABS.
[2021-01-22 10:25] LABS: ALBUMIN 2.1 g/dL (3.4-5.0); ANION GAP 11.6 mmol/L (8-16); BILIRUBIN - TOTAL 0.31 mg/dL (0.2-1.3); CALCIUM 8.3 mg/dL (8.5-10.1); CARBON DIOXIDE 23.6 mmol/L (21.0-32.0); CREATININE - SERUM 0.9 mg/dL (0.6-1.3); MAGNESIUM - SERUM 1.2 mg/dL (1.8-2.4); POTASSIUM - SERUM 3.2 mmol/L (3.5-5.1); PROTEIN - SERUM 6.3 g/dL (6.4-8.2)
[2021-01-22 10:33] LABS: CKMB 5.7 U/L (0.0-3.6); CREATINE KINASE 38 UL (21-215); MCH 27.4 pg (26.0-34.0); MCHC 32.2 g/dL (31.0-37.0); MEAN PLATELET VOLUME 6.8 fL (7.4-10.4); PLATELET COUNT 330 10x3/uL (130-400); RDW 16.5 % (11.5-14.5); TROPONIN-I 0.046 ng/mL (0.000-0.060); WBC 20.7 10x3/uL (4.8-10.8)
--- NOTE | 2021-01-22 14:14 | NUR ---
AMBULATED IN HALLWAY WITH PHYSICAL THERAPY. CURRENTLY SITTING UP IN CHAIR.
--- NOTE | 2021-01-22 14:19 | NUR ---
SPUTUM SAMPLE COLLECTED AND SENT TO LAB.
[2021-01-22 14:26] LABS: LYMPHOCYTES 5 % (15-50); MONOCYTES 4 % (2-11); NEUTROPHILS 89 % (40-80); PLATELET ESTIMATE NORMAL
[2021-01-22 14:27] LABS: ROULEAUX OCC
--- NOTE | 2021-01-22 23:39 | NUR ---
PT WENT INTO AFIB HR 110-135 EKG CONFIRMED, DR FAN CALLED AND UPDATED, ADVISED TO CALL BACK IF HR STAYS ABOVE 120 FOR MORE THAN 20 MINS.
[2021-01-23] VITALS (8 sets, daily range): BP systolic 94–118; BP diastolic 56–65; Ht 160 cm; Wt 76.7 kg
--- NOTE | 2021-01-23 01:18 | NUR ---
PT CONVERTED BACK TO SINUS RHYTHM AT APPROXIMATELY 0100, CURRENT HR 103
--- NOTE | 2021-01-23 07:10 | NUR ---
REPORT RECEIVED FROM OFF GOING NURSE AND PATIENT CARE ASSUMED. PATIENT SITTING UP IN BS CHAIR AWAKE, ALERT AND ORIENTED X 4. VSS. ALL LINES CHECKED AND PATIENT. VSS. PATIENT DENIES ANY NEEDS OR PAIN. WILL CONTINUE WITH PLAN OF CARE. CALL LIGHT IN REACH.
--- NOTE | 2021-01-23 08:30 | NUR ---
ASSISTED PATIENT TO BR. PATIENT HAS STEADY GAIT. TOLERATED WELL. PATIENT REPORTS SM BM. BACK TO BS CHAIR. VSS. CALL LIGHT IN REACH.
--- NOTE | 2021-01-23 09:30 | NUR ---
DR WILBER PARRY. NEW ORDER RECEIVED TRX TO FLOOR.
--- NOTE | 2021-01-23 10:11 | NUR ---
PER ORDER DR FAN CARDIOLOGY CONSULTED. REY CARTAGENA WITH CARDIOLOGY WILL SEE PATIENT THIS AM.
--- NOTE | 2021-01-23 10:21 | NUR ---
CALLED FOR CLARIFICTION, PER KINGSTON FREEMAN WITH DR FAN, PATIENT IS TO TRX TO FLOOR PER ORDER IN COMPUTER.
--- NOTE | 2021-01-23 11:00 | NUR ---
PATIENT UP TO BS CHAIR. STEADY GAIT AND TOLERATED WELL.PATIENT DENIES ANY NEEDS OR PAIN. WILL CONTINUE TO MONITOR. SR UP X 2 BED IN LOW POSITION AND CALL LIGHT IN REACH.
[2021-01-23 11:08] LABS: BASOPHILS 0.3 % (0-2); EOSINOPHILS 0.3 % (0-7); HEMATOCRIT 26.9 % (36.0-48.0); HEMOGLOBIN 8.9 g/dL (12-16); LYMPHOCYTES 2.9 % (15-50); MCH 27.9 pg (26.0-34.0); MCHC 32.9 g/dL (31.0-37.0); MCV 84.7 fL (80.0-100.0); MEAN PLATELET VOLUME 6.8 fL (7.4-10.4); MONOCYTES 2.9 % (2-11); NEUTROPHILS 93.6 % (40-80); PLATELET COUNT 354 10x3/uL (130-400); RBC 3.18 10x6/uL (4.00-5.40); RDW 16.7 % (11.5-14.5); WBC 19.9 10x3/uL (4.8-10.8)
[2021-01-23 11:15] LABS: CALC OSMOLALITY 275 mosm/kg (275-300); CALCIUM 8.6 mg/dL (8.5-10.1); CARBON DIOXIDE 25.6 mmol/L (21.0-32.0); CHLORIDE - SERUM 104 mmol/L (98-107); CREATININE - SERUM 0.8 mg/dL (0.6-1.3); GLUCOSE 146 mg/dL (74-106); POTASSIUM - SERUM 3.1 mmol/L (3.5-5.1); SODIUM 137 mmol/L (136-145); UREA NITROGEN 11 mg/dL (7-18); eGFR NON AFRICAN AMERICAN 75 mL/min (90-120)
[2021-01-23 11:21] LABS: ALKALINE PHOSPHATASE 71 U/L (30-120); BILIRUBIN - TOTAL 0.35 mg/dL (0.2-1.3); PROTEIN - SERUM 6.9 g/dL (6.4-8.2)
[2021-01-23 11:25] LABS: ALT (SGPT) 18 U/L (10-68)
--- NOTE | 2021-01-23 14:02 | NUR ---
REPORT CALLED TO KINGSTON RAWLS . PATIENT TRX TO 210.
--- NOTE | 2021-01-23 14:29 | NUR ---
Sputum Culture 01/22/21-Staph Aureus. Temporary Droplet Isolation until R/O MRSA.
--- NOTE | 2021-01-23 14:30 | NUR ---
ARRIVE TO ROOM VIA WHEELCHAIR FROM CVICU. ACCOMPANIED BY STAFF AND FAMILY. ALERT AND ORIENTED X4. AMBULATES TO BED WITH STAND BY ASSIST. BEDSIDE COMMODE OBTAIN PER PATIENT REQUEST. INITIATE DROPLET ISO PER NICK, INFECTION CONTROL. CONTINUE PLAN OF CARE AND SAFETY PRECAUTIONS.
--- NOTE | 2021-01-23 19:45 | NUR ---
REPORT RECEIVED. PATIENT IS AAOX4, LYING IN SEMI-FOWLERS POSITION. NO S/S OF DISTRESS OBSERVED, RR EVEN AND UNLABORED ON 2L O2 VIA NC. PIV TO RT FA, PATENT, INFUSING LR @ 75ML/HR. RT CHEST PORT IS ACCESSED, SL. PATIENT DENIES NEEDS AT THIS TIME. CL IN REACH, BED LOCKED AND LOWERED. DROPLET PRECAUTIONS MAINTAINED. WILL CPOC.
[2021-01-24] VITALS (7 sets, daily range): BP systolic 113–144; BP diastolic 35–71
--- NOTE | 2021-01-24 04:55 | NUR ---
I have reviewed this patient and I concur with the Shift Assessment completed by the Licensed Practical Nurse today this shift.
[2021-01-24 06:19] LABS: BASOPHILS 0.4 % (0-2); EOSINOPHILS 1.9 % (0-7); HEMATOCRIT 25.7 % (36.0-48.0); HEMOGLOBIN 8.3 g/dL (12-16); LYMPHOCYTES 4.8 % (15-50); MCH 27.6 pg (26.0-34.0); MCHC 32.4 g/dL (31.0-37.0); MCV 85.2 fL (80.0-100.0); MEAN PLATELET VOLUME 7.3 fL (7.4-10.4); MONOCYTES 3.4 % (2-11); NEUTROPHILS 89.5 % (40-80); PLATELET COUNT 359 10x3/uL (130-400); RBC 3.02 10x6/uL (4.00-5.40); RDW 16.6 % (11.5-14.5)
[2021-01-24 06:38] LABS: WBC 14.4 10x3/uL (4.8-10.8)
[2021-01-24 06:49] LABS: ALBUMIN 1.9 g/dL (3.4-5.0); ALKALINE PHOSPHATASE 73 U/L (30-120); BILIRUBIN - TOTAL 0.35 mg/dL (0.2-1.3); CALCIUM 8.9 mg/dL (8.5-10.1); CARBON DIOXIDE 26.2 mmol/L (21.0-32.0); CHLORIDE - SERUM 107 mmol/L (98-107); CREATININE - SERUM 0.8 mg/dL (0.6-1.3); POTASSIUM - SERUM 3.5 mmol/L (3.5-5.1); PROTEIN - SERUM 6.6 g/dL (6.4-8.2); SODIUM 141 mmol/L (136-145); UREA NITROGEN 10 mg/dL (7-18); eGFR NON AFRICAN AMERICAN 75 mL/min (90-120)
[2021-01-24 06:51] LABS: ALT (SGPT) 29 U/L (10-68); CALC OSMOLALITY 279 mosm/kg (275-300); GLUCOSE 91 mg/dL (74-106)
--- NOTE | 2021-01-24 07:00 | NUR ---
Lying in bed, awake/alert/oriented, T/R self ad rosie, cont of B/B with BSC with assist ad rosie, denies pain/other discomfort at this time, call light/phone/water within reach, no s/s of acute distress observed.
--- NOTE | 2021-01-24 09:40 | NUR ---
Hgb is trending down, now at 8.3; left message for JESSA Kan.
--- NOTE | 2021-01-24 10:16 | NUR ---
JESSA Kan on unit, attempted to provide information on Hgb, however, received no response.
[2021-01-25] VITALS: BP 121/65
--- NOTE | 2021-01-25 02:23 | NUR ---
I have reviewed this patient and I concur with the Shift Assessment completed by the Licensed Practical Nurse today this shift.
[2021-01-25 04:00] VITALS: BP 117/611
[2021-01-25 06:13] LABS: BASOPHILS 0.9 % (0-2); EOSINOPHILS 2.2 % (0-7); HEMATOCRIT 26.8 % (36.0-48.0); HEMOGLOBIN 8.9 g/dL (12-16); LYMPHOCYTES 7.5 % (15-50); MCH 28.1 pg (26.0-34.0); MCHC 33.1 g/dL (31.0-37.0); MCV 85.1 fL (80.0-100.0); MEAN PLATELET VOLUME 7.2 fL (7.4-10.4); MONOCYTES 6.1 % (2-11); NEUTROPHILS 83.3 % (40-80); PLATELET COUNT 385 10x3/uL (130-400); RBC 3.15 10x6/uL (4.00-5.40); RDW 16.5 % (11.5-14.5)
[2021-01-25 06:43] LABS: WBC 10.6 10x3/uL (4.8-10.8)
[2021-01-25 06:49] LABS: ALKALINE PHOSPHATASE 87 U/L (30-120); BILIRUBIN - TOTAL 0.31 mg/dL (0.2-1.3); CALC OSMOLALITY 278 mosm/kg (275-300); CALCIUM 8.9 mg/dL (8.5-10.1); CARBON DIOXIDE 26.5 mmol/L (21.0-32.0); CHLORIDE - SERUM 106 mmol/L (98-107); CREATININE - SERUM 0.8 mg/dL (0.6-1.3); GLUCOSE 80 mg/dL (74-106); MAGNESIUM - SERUM 1.6 mg/dL (1.8-2.4); POTASSIUM - SERUM 3.4 mmol/L (3.5-5.1); PROTEIN - SERUM 6.8 g/dL (6.4-8.2); SODIUM 141 mmol/L (136-145); UREA NITROGEN 9 mg/dL (7-18); eGFR NON AFRICAN AMERICAN 75 mL/min (90-120)
[2021-01-25 06:50] LABS: ALT (SGPT) 47 U/L (10-68)
--- NOTE | 2021-01-25 07:20 | NUR ---
Lying in bed, awake/alert/oriented, T/R self ad rosie, cont of B/B with BSC per self ad rosie, denies pain/other discomfort at this time, call light/phone/water within reach, no s/s of acute distress observed.
[2021-01-25 08:44] VITALS: BP 100/82
--- NOTE | 2021-01-25 10:48 | NUR ---
Nutrition Follow-up: PO intake improving. 0-25% yesterday but nursing reports pt ate >50% this AM. Diet: Diabetic, clear Ensure TID No new wt; last wt: 169# (01/23) Labs noted: K+ 3.4, Glu 80, Mg 1.6, Alb 2.0 Meds noted: KDur, Florajen, Imodium, Protonix, Senokot, LR @ 75 -Encourage PO intake and honor food preferences within diet restrictions. -Need new wt. -RD will follow up within 4-5 days.
[2021-01-25 13:08] VITALS: BP 130/63
[2021-01-25 16:56] VITALS: BP 141/71
--- NOTE | 2021-01-25 19:30 | NUR ---
RECEIVED REPORT, WILL ASSUME CARE OF PT, ASKING FOR PAIN MEDS, COMPLAINS OF BACK PAIN, WILL PROVIDE ORDERED, BED IS LOW, SRX2, CALL LIGHT IN REACH, FAMILY AT BEDSIDE, WILL CONTINUE PLAN OF CARE
[2021-01-25 20:10] VITALS: BP 126/61
[2021-01-26 01:21] VITALS: BP 105/60
[2021-01-26 05:28] LABS: BASOPHILS 0.3 % (0-2); EOSINOPHILS 1.1 % (0-7); HEMATOCRIT 27.4 % (36.0-48.0); HEMOGLOBIN 9.1 g/dL (12-16); LYMPHOCYTES 5.8 % (15-50); MCH 28.2 pg (26.0-34.0); MCHC 33.3 g/dL (31.0-37.0); MCV 84.8 fL (80.0-100.0); MEAN PLATELET VOLUME 7.2 fL (7.4-10.4); MONOCYTES 8.5 % (2-11); NEUTROPHILS 84.3 % (40-80); PLATELET COUNT 375 10x3/uL (130-400); RBC 3.24 10x6/uL (4.00-5.40); RDW 16.7 % (11.5-14.5)
[2021-01-26 05:43] LABS: WBC 13.3 10x3/uL (4.8-10.8)
[2021-01-26 05:57] LABS: ALBUMIN 1.9 g/dL (3.4-5.0); ALKALINE PHOSPHATASE 87 U/L (30-120); BILIRUBIN - TOTAL 0.44 mg/dL (0.2-1.3); CALC OSMOLALITY 271 mosm/kg (275-300); CALCIUM 8.5 mg/dL (8.5-10.1); CARBON DIOXIDE 26.5 mmol/L (21.0-32.0); CHLORIDE - SERUM 101 mmol/L (98-107); CREATININE - SERUM 0.8 mg/dL (0.6-1.3); GLUCOSE 98 mg/dL (74-106); MAGNESIUM - SERUM 1.3 mg/dL (1.8-2.4); POTASSIUM - SERUM 3.2 mmol/L (3.5-5.1); PROTEIN - SERUM 6.9 g/dL (6.4-8.2); SODIUM 137 mmol/L (136-145); UREA NITROGEN 8 mg/dL (7-18); VANCOMYCIN - RANDOM 10.7 ug/mL (10.0-20.0); eGFR NON AFRICAN AMERICAN 75 mL/min (90-120)
[2021-01-26 05:58] LABS: ALT (SGPT) 31 U/L (10-68)
[2021-01-26 06:23] VITALS: BP 119/66
--- NOTE | 2021-01-26 06:26 | NUR ---
I have reviewed this patient and I concur with the Shift Assessment completed by the Licensed Practical Nurse today this shift.
--- NOTE | 2021-01-26 06:45 | NUR ---
PT LYING IN BED WITH HOB ELEVATED 30 DEGREES. RESP EVEN AND UNLABORED. O2 2 LPM VIA NC IN PLACE. AAO X4. DENIES NEEDS AT THIS TIME. CLIR. BED IN LOWEST POSIITON. SIDE RAILS X2
[2021-01-26] MEDS ORDERED: MUCINEX DM ER1 EAC1 PO (09:03)
[2021-01-26] MEDS ORDERED: LEVOFLOXACIN500 MG PO (09:04)
[2021-01-26] MEDS ORDERED: ADOXA100 MG PO (09:04)
[2021-01-26] MEDS ORDERED: LOPRESSOR25 MG PO (09:10)
--- NOTE | 2021-01-26 11:18 | EC ---
PATIENT:SILVA BARKSDALE DATE OF SERVICE: 01/21/21 SEX: F MEDICAL RECORD: [id number] DATE OF : 54 LOCATION:D.M2 D.210 AGE OF PATIENT: 70 ADMISSION DATE: 01/21/21 REFERRING PHYSICIAN: INTERPRETING PHYSICIAN: BETZY JOHNSON MD ECHOCARDIOGRAM REPORT ECHO CHARGES 4 ECHO COMPLETE Date: 01/25/21 CLINICAL DIAGNOSIS: PNA, AFIB ECHOCARDIOGRAPHIC MEASUREMENTS (adult normal given) AC root (d.<3.7cm) 2.7 cm LV Septum d (<1.2 cm> 0.9 cm Valve Excursion 1.6 cm LV Septum (systole) 1.0 cm Left Atria (s.<4.0cm> 4.0 cm LVPW d(<1.2cm) 0.9 cm RV (d.<2.3cm) 2.9 cm LVPW (sytole) 1.2 cm LV diastole(<5.6CM) 5.2 cm MV E-F(>70mm/sec) cm LV systole 4.4 cm LVOT Diameter 1.5 cm MV exc.(>10mm) 1.7 cm Est.ejection fraction (50-75%) % DOPPLER: LVIT cm/sec A 113 cm/sec E 78 cm/sec LA cm/sec RVSP 26 mmHg LVOT 94 cm/sec AOP1/2T m/s Asc. Ao 157 cm/sec RVOT 59 cm/sec RA cm/sec PA 92 cm/sec AV Gradient Peak 9.8 mmHg AV Mean 6.0 mmHg AV Area 1.2 cm MV Gradient Peak 7.3 mmHg MV Mean 3.4 mmHg MV Area cm COMMENTS: Recruiter: Kamini QUIROZ Farm Consultant: 3 Dr. Macias TAPE# Pericardial Effusion N DATE OF SERVICE: Adequate 2D, color flow imaging, spectral Doppler, and M-Mode. FINDINGS: Borderline LVH. LV internal dimensions are normal. Wall motion is normal. EF is greater than or equal to 55%. Aortic valve is tricuspid. No evidence of stenosis by Doppler interrogation. Left atrium is upper limits of normal at 4.0 cm. Mitral valve shows no prolapse. Trace MR. Right side is grossly normal. Mild TR. ECHOCARDIOGRAM REPORT [id number] SILVA BARKSDALE TRANSINT:[id number] Voice Confirmation ID: [id number] DOCUMENT ID: [id number] BETZY JOHNSON MD at 1118 CC: [id number] DICTATION DATE: 01/25/21 1506 PROFESSOR OF LEGAL STUDIES: 01/25/211918 ADM IN [facility] [address] [id number]
[2021-01-26 11:57] VITALS: BP 120/67
--- NOTE | 2021-01-26 14:00 | NUR ---
PT DISCHARGED HOME WITH FAMILY MEMBER AND ALL BELONGINGS. DISCHARGE INSTRUCTIONS PROVIDED VERBALLY AND WRITTEN. PT VERBALIZED UNDERSTANDING. ALYX BURGER DC FROM INFUSAPORT PER KINGSTON MATTHEWS. DRESSING APPLIED TO SITE.
[2021-01-26] MEDS ORDERED: HYDROXYZINE HCL10 MG PO (14:02)
--- NOTE | 2021-01-26 15:41 | MORECARE ---
CASE MANAGEMENT DISCHARGE SUMMARY PATIENT: SILVA BARKSDALE UNIT: [id number] ADM DATE: 01/21/21 AGE: 70 : 52 SEX: F ROOM/BED: D.2100 AUTHOR: INDRA,DOC PHYSICIAN: REFERRING PHYSICIAN: GREGG HUGHES DO DATE OF SERVICE: 01/26/21 Case Management Discharge Planning Summary DCP REVIEW SUMMARY ANTICIPATED D/C DATE: 01/26/2021 EXPECTED LOS : 5 CASE STATUS: DCP Initiated INITIAL REVIEW: 01/21/2021 INITIAL REVIEWER: Luciana De Jesus FINAL DISCHARGE DISPOSITION: : FINAL REVIEWER: FINAL REVIEW DATE: DCP Focus Questions & Answers QUESTION: ANSWER : PATIENT: SILVA BARKSDALE ENCOUNTER: [id number] MEDICAL RECORD#: [id number] ADMISSION DATE: 01/21/2021 DISCHARGE DATE: 01/26/2021 ATTENDING MD: GREGG BOSE : AGE: 70 MARITAL STATUS: D DC PLAN ID: [id number] FACILITY: [facility] PRINTED ON: 01/26/21 15:41 CT All edits/amendments must be made on the electronic document DICTATION DATE: 01/26/21 154 FITNESS STUDIES TEACHER: TAMI 01/26/21 154 RPT#: [id number] DC DATE:01/26/21 STATUS: DIS IN [facility] [address] [place] [address] END OF REPORT
--- NOTE | 2021-01-26 15:55 | MORECARE ---
CASE MANAGEMENT DISCHARGE SUMMARY PATIENT: SILVA BARKSDALE UNIT: [id number] ADM DATE: 01/21/21 AGE: 70 : 52 SEX: F ROOM/BED: D.8718 AUTHOR: INDRA,DONNA PHYSICIAN: REFERRING PHYSICIAN: GREGG HGUHES DO DATE OF SERVICE: 01/26/21 Case Management Discharge Planning Summary COMMENTS ENTERED DATE: 01/26/21 15:37 CT COMMENT TYPE: Discharge Planning REVIEWER: Luciana De Jesus CM met with patient to complete discharge planning assessment and offer availability of needed services. Patient states that lives independently at home with spouse prior to admission. Pt states that she will be discharging to [facility] for next several days. Pt verified that daughters home environment is safe and has electricity and running water. Patient denies need for transportation and state that they have funds for services and medications if needed. PCP is Dr. Gutiérrez and patient use [facility]'s pharmacy. CM offered and discussed home health, rehab services, and need for any additional medical equipment. Patient did not express need for added services at this time. Patient does have several pieces of equipment currently. Equipment obtained from [employer]. Transportation home will be provided by [facility] ([phone]). Patient verbalized understanding of signed forms. IMM served, and signed copy placed on chart. MEP REVIEW SUMMARY ANTICIPATED D/C DATE: 01/26/2021 EXPECTED LOS : 5 CASE STATUS: DCP Initiated INITIAL REVIEW: 01/21/2021 INITIAL REVIEWER: Luciana De Jesus FINAL DISCHARGE DISPOSITION: : FINAL REVIEWER: FINAL REVIEW DATE: MEP Focus Questions & Answers QUESTION: ANSWER : PATIENT: SILVA BARKSDALE ENCOUNTER: [id number] MEDICAL RECORD#: [id number] ADMISSION DATE: 01/21/2021 DISCHARGE DATE: 01/26/2021 ATTENDING MD: GREGG BOSE : AGE: 70 MARITAL STATUS: D DC PLAN ID: [id number] FACILITY: [facility] PRINTED ON: 01/26/21 15:55 CT All edits/amendments must be made on the electronic document DICTATION DATE: 01/26/21 1553 PARKING OFFICER: TAMI 01/26/21 1554 RPT#: [id number] DC DATE:01/26/21 STATUS: DIS IN [facility] [address] [place] [address] END OF REPORT
--- NOTE | 2021-01-29 14:02 | MORECARE ---
CASE MANAGEMENT DISCHARGE SUMMARY PATIENT: SILVA BARKSDALE UNIT: [id number] ADM DATE: 01/21/21 AGE: 70 : 52 SEX: F ROOM/BED: D.7213 AUTHOR: INDRA,DONNA PHYSICIAN: REFERRING PHYSICIAN: GREGG HUGHES DO DATE OF SERVICE: 01/29/21 Case Management Discharge Planning Summary COMMENTS ENTERED DATE: 01/26/21 15:37 CT COMMENT TYPE: Discharge Planning REVIEWER: Luciana De Jesus CM met with patient to complete discharge planning assessment and offer availability of needed services. Patient states that lives independently at home with spouse prior to admission. Pt states that she will be discharging to [facility] for next several days. Pt verified that daughters home environment is safe and has electricity and running water. Patient denies need for transportation and state that they have funds for services and medications if needed. PCP is Dr. Gutiérrez and patient use [facility]'s pharmacy. CM offered and discussed home health, rehab services, and need for any additional medical equipment. Patient did not express need for added services at this time. Patient does have several pieces of equipment currently. Equipment obtained from [employer]. Transportation home will be provided by [facility] ([phone]). Patient verbalized understanding of signed forms. IMM served, and signed copy placed on chart. ARP REVIEW SUMMARY ANTICIPATED D/C DATE: 01/26/2021 EXPECTED LOS : 5 CASE STATUS: DCP Initiated INITIAL REVIEW: 01/21/2021 INITIAL REVIEWER: Luciana De Jesus FINAL DISCHARGE DISPOSITION: : FINAL REVIEWER: FINAL REVIEW DATE: ARP Focus Questions & Answers QUESTION: ANSWER : PATIENT: SILVA BARKSDALE ENCOUNTER: [id number] MEDICAL RECORD#: [id number] ADMISSION DATE: 01/21/2021 DISCHARGE DATE: 01/26/2021 ATTENDING MD: GREGG BOSE : AGE: 70 MARITAL STATUS: D DC PLAN ID: [id number] FACILITY: [facility] PRINTED ON: 01/29/21 14:02 CT All edits/amendments must be made on the electronic document DICTATION DATE: 01/29/211401 PLASTIC MOLDING OPERATOR: TAMI 01/29/211401 RPT#: [id number] DC DATE:01/26/21 STATUS: DIS IN [facility] [address] [place] [address] END OF REPORT
== END 2021-01-26 14:00 | disposition home or self-care (01) | DRG 871 ==
LOC: D.ER 13:40 → D.CVICU 15:08 → D.M2 15:08 → D.MS 15:08 → D.CVICU 16:08 → D.M2 01-23 14:34
PROVIDERS: Family Medicine; Internal Medicine Pulmonary Disease; Thoracic Surgery (Cardiothoracic Vascular Surgery); ADMIT Family Medicine; ATTEND Family Medicine
DX: A41.9 Sepsis, unspecified organism (principal); J96.21 Acute and chronic respiratory failure with hypoxia; J15.212 Pneumonia due to Methicillin resistant Staphylococcus aureus; E87.2 Acidosis; J98.11 Atelectasis; J43.9 Emphysema, unspecified; K21.9 Gastro-esophageal reflux disease without esophagitis; E11.9 Type 2 diabetes mellitus without complications; I10 Essential (primary) hypertension; D50.9 Iron deficiency anemia, unspecified; K59.00 Constipation, unspecified; Z95.5 Presence of coronary angioplasty implant and graft; E78.5 Hyperlipidemia, unspecified; I25.10 Atherosclerotic heart disease of native coronary artery without angina pectoris; I48.91 Unspecified atrial fibrillation

== ENCOUNTER 2021-01-30 04:04 | Inpatient (IN) | payer MEDICARE ==
[~2021-01-30] VITALS: Ht 160 cm; Wt 75.0 kg
[2021-01-30] VITALS (7 sets, daily range): BP systolic 113–137; BP diastolic 61–77; BMI 23.0
[~2021-01-30 04:04] MED LIST changes: +ADOXA100 MG PO; +HYDROXYZINE HCL10 MG PO; +LEVOFLOXACIN500 MG PO; +LOPRESSOR25 MG PO; +MUCINEX DM ER1 EAC1 PO
[2021-01-30 05:28] LABS: BASOPHILS 0.5 % (0-2); EOSINOPHILS 0.6 % (0-7); HEMOGLOBIN 9.2 g/dL (12-16); LYMPHOCYTES 5.2 % (15-50); MCH 27.2 pg (26.0-34.0); MCHC 31.7 g/dL (31.0-37.0); MCV 85.8 fL (80.0-100.0); MEAN PLATELET VOLUME 7.7 fL (7.4-10.4); MONOCYTES 4.2 % (2-11); NEUTROPHILS 89.5 % (40-80); PLATELET COUNT 393 10x3/uL (130-400); RBC 3.38 10x6/uL (4.00-5.40); RDW 16.4 % (11.5-14.5); WBC 18.3 10x3/uL (4.8-10.8)
[2021-01-30 05:38] LABS: CALC OSMOLALITY 272 mosm/kg (275-300); CALCIUM 9.2 mg/dL (8.5-10.1); CARBON DIOXIDE 25.9 mmol/L (21.0-32.0); CHLORIDE - SERUM 99 mmol/L (98-107); CREATININE - SERUM 0.9 mg/dL (0.6-1.3); GLUCOSE 131 mg/dL (74-106); POTASSIUM - SERUM 3.9 mmol/L (3.5-5.1); SODIUM 135 mmol/L (136-145); UREA NITROGEN 14 mg/dL (7-18); eGFR NON AFRICAN AMERICAN 66 mL/min (90-120)
[2021-01-30 05:48] LABS: ALBUMIN 2.1 g/dL (3.4-5.0); ALKALINE PHOSPHATASE 105 U/L (30-120); ALT (SGPT) 17 U/L (10-68); BILIRUBIN - TOTAL 0.52 mg/dL (0.2-1.3); CREATINE KINASE 15 UL (21-215); MAGNESIUM - SERUM 1.6 mg/dL (1.8-2.4); PRO BNP 237 pg/mL (0-125); PROTEIN - SERUM 7.9 g/dL (6.4-8.2)
[2021-01-30 05:50] LABS: TROPONIN-I < 0.017 ng/mL (0.000-0.060)
[2021-01-30 05:56] LABS: APTT 40.3 SECONDS (22.8-39.4); INR 1.31 (0.85-1.17)
[2021-01-30 06:13] LABS: C-REACTIVE PROTEIN 25.2 mg/dL (0.0-0.9)
[2021-01-30 06:49] LABS: D-DIMER-QUANTITATIVE 19.97 ug/mLFEU (0.20-0.54)
--- NOTE | 2021-01-30 08:00 | NUR ---
Arrived to unit from ER, oriented to unit, oriented to room, oriented to bed controls, placed on Contact Isolation r/t history (last week) of Staph in sputum, currently lying in bed, awake/alert/oriented, T/R self ad rosie, encouraged repeatedly to keep right arm still, cont of B/B with BSC with assist ad rosie, denies pain at this time, call light/phone/water within reach, no s/s of acute distress observed.
--- NOTE | 2021-01-30 21:00 | NUR ---
ASSESSMENT COMPLETED FOR THIS PT. SHE IS ON CONTACT ISOLATION FOR STAPH IN HER SPUTUM. 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 SHE IS ON TELE AT RATE OF 80 AND SINUS RHYTHM..SHE HAS CAD AND HAS SPLINTS AND HAS HAD ANGIOPLASTY. SHE HAS A LEFT FOREARM IV WITH NS INFUSING AT 50 ML/HR. SHE WAS ABLE TO GIVE A URINE SAMPLE TONIGHT. PT NEEDS ASSIST TO GET OUT AND BACK IN TO BED. SHE IS WEAK. SHE SPEECH HAS BEEN FINE TONIGHT. PT IS COOPERATIVE AND COMPLIANT. SHE IS A DIABETIC AND BS WAS 119 RECEIVING NO INSULIN. SIDERAILS UP X 2 AND CALL LIGHT CLOSE AT HAND.
[2021-01-30 22:31] LABS: BILIRUBIN NEGATIVE (NEGATIVE); KETONE NEGATIVE mg/dL (< 1+); NITRITE NEGATIVE (NEGATIVE); SQUAMOUS EPITHELIAL 4 HPF (0-4); UROBILINOGEN NORMAL mg/dL (< 2); WHITE CELLS - URINE 166 HPF (0-4)
[2021-01-31 00:52] VITALS: BP 90/54
[2021-01-31 05:20] VITALS: BP 97/57
[2021-01-31 07:20] LABS: BASOPHILS 0.8 % (0-2); EOSINOPHILS 1.7 % (0-7); HEMATOCRIT 27.2 % (36.0-48.0); HEMOGLOBIN 8.8 g/dL (12-16); LYMPHOCYTES 8.6 % (15-50); MCH 27.5 pg (26.0-34.0); MCHC 32.2 g/dL (31.0-37.0); MCV 85.4 fL (80.0-100.0); MEAN PLATELET VOLUME 7.3 fL (7.4-10.4); MONOCYTES 4.9 % (2-11); PLATELET COUNT 352 10x3/uL (130-400); RBC 3.19 10x6/uL (4.00-5.40); RDW 16.6 % (11.5-14.5)
[2021-01-31 07:30] LABS: ALBUMIN 1.9 g/dL (3.4-5.0); ANION GAP 12.2 mmol/L (8-16); BILIRUBIN - TOTAL 0.32 mg/dL (0.2-1.3); CALCIUM 8.2 mg/dL (8.5-10.1); CARBON DIOXIDE 25.2 mmol/L (21.0-32.0); CREATININE - SERUM 0.9 mg/dL (0.6-1.3); MAGNESIUM - SERUM 1.4 mg/dL (1.8-2.4); PHOSPHOROUS 3.2 mg/dL (2.5-4.9); POTASSIUM - SERUM 3.4 mmol/L (3.5-5.1); PROTEIN - SERUM 7.5 g/dL (6.4-8.2)
[2021-01-31 07:39] LABS: WBC 10.2 10x3/uL (4.8-10.8)
--- NOTE | 2021-01-31 08:13 | NUR ---
AM ROUNDING DONE WITH PATIENT BEING IN CONTACT ISOLATION. ON HEART MONITOR SHOWING SR, HR 86. RIGHT ARM IS SWOLLEN AND TIGHT FEELING, UP ON PILLOW. GOOD RADIAL PULSE. ON 4L PER NC. LEFT FA PIV SEEN WITH NS INFUSING AT 50 CC/HR, ORANGE SWAB CAPS IN USE. ON EP, K+ IS 3.4, MAG IS 1.4.
[2021-01-31 09:00] VITALS: BP 92/44
--- NOTE | 2021-01-31 09:36 | NUR ---
REHAB PRESCREEN RECEIVED. CHART REVIEW WILL BE COMPLETED TODAY, BUT IS LIKELY TO BE LATE AFTERNOON. IF SHE MEETS CRITERIA FOR INPATIENT REHAB, WE WILL START THE ELECTRONIC SCREEN. THANK YOU FOR THIS REFERRAL. ASAF OROZCO RN CLINICAL LIAISON.
[2021-02-01] VITALS (7 sets, daily range): BP systolic 93–113; BP diastolic 51–62
[2021-02-01 06:15] LABS: BASOPHILS 1.1 % (0-2); EOSINOPHILS 1.1 % (0-7); HEMATOCRIT 25.3 % (36.0-48.0); HEMOGLOBIN 8.2 g/dL (12-16); LYMPHOCYTES 5.2 % (15-50); MCH 27.6 pg (26.0-34.0); MCHC 32.3 g/dL (31.0-37.0); MCV 85.5 fL (80.0-100.0); MEAN PLATELET VOLUME 7.7 fL (7.4-10.4); MONOCYTES 6.2 % (2-11); NEUTROPHILS 86.4 % (40-80); PLATELET COUNT 356 10x3/uL (130-400); RBC 2.95 10x6/uL (4.00-5.40); RDW 16.5 % (11.5-14.5); WBC 11.6 10x3/uL (4.8-10.8)
[2021-02-01 06:58] LABS: ALBUMIN 1.7 g/dL (3.4-5.0); ALKALINE PHOSPHATASE 94 U/L (30-120); ALT (SGPT) 16 U/L (10-68); BILIRUBIN - TOTAL 0.35 mg/dL (0.2-1.3); CALC OSMOLALITY 271 mosm/kg (275-300); CALCIUM 7.9 mg/dL (8.5-10.1); CARBON DIOXIDE 22.8 mmol/L (21.0-32.0); CHLORIDE - SERUM 103 mmol/L (98-107); CREATININE - SERUM 0.8 mg/dL (0.6-1.3); GLUCOSE 87 mg/dL (74-106); MAGNESIUM - SERUM 1.4 mg/dL (1.8-2.4); PROTEIN - SERUM 6.8 g/dL (6.4-8.2); SODIUM 137 mmol/L (136-145); eGFR NON AFRICAN AMERICAN 75 mL/min (90-120)
[2021-02-01 07:00] LABS: UREA NITROGEN 10 mg/dL (7-18)
--- NOTE | 2021-02-01 07:00 | NUR ---
PT IS A/O X4. RR E/U. ASSISTE PT TO BEDSIDE 3 TIMES DURING NIGHT WITHOUT DISTRESS. PT REMAINED STABLE IN VITALS AND 02. PAIN MANAGED THROUGH OUT NIGHT WITH PRN MEDICATION. PT BED IS LOW CALL LIGHT WITHIN REACH. EDUCATED PT ON IMPORTANCE OF ASSIST TO BEDSIDE AND PAIN CONTROL. PT AGREES. WILL CONTINUE TO MONITOR.
--- NOTE | 2021-02-01 08:34 | NUR ---
AM ROUNDING DONE WITH PATIENT SITTING ON SIDE OF BED EATING BREAKFAST. DENIES NEEDS AT THIST HARJINDER. ON HEART MONITOR AT THIS TIME. ON 4L PER NASAL CANNULA. LEFT FA PIV SEEN WITH NS INFUSING AT 50 CC/HR, SWAB CAP IN PLACE. LOVENOX GIVEN ORDERED. AMARYL, HELD FOR LOW BLOOD SUGAR (102), BLOOD PRESSURE MEDS HELD FOR B/P 98/57. THIS IS EXPLAINED TO THE PATIENT AND SHE STATES TO UNDERSTANDING. IN CONTACT ISOLATION. RIGHT ARM IS STILL SWOLLEN BUT LESS SO IN UPPER ARM. INSTURCTED TO USE CALL LIGHT FOR ALL NEEDS. STATES TO UNDERSTANDING. DOES NOT WANT TO WASH UP AT THIS TIME.
--- NOTE | 2021-02-01 08:50 | NUR ---
PATIENT LOOKS TO BE A GOOD CANDIDATE FOR INPATIENT REHAB, HOWEVER AT THIS TIME, WE DO NOT HAVE A FEMALE ISOLATION BED AVAILABLE. WE WILL CONTINUE TO FOLLOW THE PATIENT. I HAVE DISCUSSED THIS WITH KINGSTON BELTRAN CM. THANK YOU FOR THIS REFERRAL. ASAF OROZCO RN CLINICAL LIAISON, INPATIENT REHAB.
[2021-02-02 02:22] VITALS: BP 118/61
--- NOTE | 2021-02-02 02:51 | NUR ---
STOOD BY ASSISTED PT TO BEDSIDE. PT USED GOOD EFFORT AND WAS ABLE TO GET SELF UP AND DOWN. PT COMPLAINS OF PAIN PRN GIVEN. VSS. RR E/U. NO S/S OF DISTRESS. BED LOW CALL LIGHT WITHIN REACH.
[2021-02-02 05:22] VITALS: BP 88/49
[2021-02-02 06:20] LABS: BASOPHILS 0.7 % (0-2); EOSINOPHILS 1.4 % (0-7); HEMATOCRIT 27.4 % (36.0-48.0); HEMOGLOBIN 8.7 g/dL (12-16); LYMPHOCYTES 8.4 % (15-50); MCH 27.1 pg (26.0-34.0); MCHC 31.8 g/dL (31.0-37.0); MCV 85.3 fL (80.0-100.0); MEAN PLATELET VOLUME 7.7 fL (7.4-10.4); MONOCYTES 7.8 % (2-11); NEUTROPHILS 81.7 % (40-80); PLATELET COUNT 423 10x3/uL (130-400); RBC 3.21 10x6/uL (4.00-5.40); RDW 16.4 % (11.5-14.5); WBC 8.9 10x3/uL (4.8-10.8)
[2021-02-02 06:25] LABS: ALBUMIN 1.9 g/dL (3.4-5.0); ALKALINE PHOSPHATASE 105 U/L (30-120); ALT (SGPT) 13 U/L (10-68); BILIRUBIN - TOTAL 0.39 mg/dL (0.2-1.3); CALC OSMOLALITY 276 mosm/kg (275-300); CALCIUM 8.9 mg/dL (8.5-10.1); CARBON DIOXIDE 25.4 mmol/L (21.0-32.0); CHLORIDE - SERUM 104 mmol/L (98-107); CREATININE - SERUM 0.8 mg/dL (0.6-1.3); GLUCOSE 102 mg/dL (74-106); MAGNESIUM - SERUM 1.7 mg/dL (1.8-2.4); POTASSIUM - SERUM 3.7 mmol/L (3.5-5.1); PROTEIN - SERUM 7.6 g/dL (6.4-8.2); SODIUM 139 mmol/L (136-145); UREA NITROGEN 9 mg/dL (7-18); eGFR NON AFRICAN AMERICAN 75 mL/min (90-120)
[2021-02-02 06:32] LABS: PHOSPHOROUS 3.8 mg/dL (2.5-4.9)
[2021-02-02 09:00] VITALS: BP 95/55
[2021-02-02 14:49] VITALS: Ht 160 cm; Wt 75.0 kg
[2021-02-02 16:00] VITALS: BP 110/57
--- NOTE | 2021-02-02 17:05 | NUR ---
BLOOD SUGAR 69 CRACKERS AND PEANUT BUTTER, WILL RECHECK.
--- NOTE | 2021-02-02 20:12 | NUR ---
RECIEVED UP IN BED WITH EYES OPEN AND TV ON. ALERT AND ORIENTED X4. REQUIRES ASSIST TO AMBULATE TO BEDSIDE COMMODE. PORT TO RT CHEST WITH NS AT 50CC/HR. DENIES ANY NEEDS AT THIS TIME.
[2021-02-02 20:51] VITALS: BP 135/62
[2021-02-03 05:41] VITALS: BP 108/60
--- NOTE | 2021-02-03 07:00 | NUR ---
RECIEVED REPORT. ASSUMED CARE OF PATIENT. PATIENT REMAINS IN CONTACT ISOLATION. WHITE BOARD UPDATED, BEDSIDE SHIFT REPORT COMPLETE. RIGHT ARM NOTED WITH SWELLING, ELEVATED ON PILLOW AT THIS TIME. PATIENT ALERT/ORIENTED STATES SWELLING HAS IMPROVED. NO DISTRESS. DENIES NEEDS AT THIS TIME.
[2021-02-03 08:28] LABS: BASOPHILS 0.8 % (0-2); EOSINOPHILS 0.8 % (0-7); HEMATOCRIT 25.9 % (36.0-48.0); HEMOGLOBIN 8.3 g/dL (12-16); LYMPHOCYTES 6.6 % (15-50); MCV 84.4 fL (80.0-100.0); MEAN PLATELET VOLUME 7.3 fL (7.4-10.4); MONOCYTES 7.1 % (2-11); NEUTROPHILS 84.7 % (40-80); PLATELET COUNT 488 10x3/uL (130-400); RBC 3.07 10x6/uL (4.00-5.40); RDW 16.4 % (11.5-14.5)
[2021-02-03 09:11] VITALS: BP 95/72
[2021-02-03 09:45] LABS: ALBUMIN 1.9 g/dL (3.4-5.0); ALKALINE PHOSPHATASE 104 U/L (30-120); ALT (SGPT) 15 U/L (10-68); BILIRUBIN - TOTAL 0.27 mg/dL (0.2-1.3); CALC OSMOLALITY 275 mosm/kg (275-300); CALCIUM 8.3 mg/dL (8.5-10.1); CARBON DIOXIDE 28.4 mmol/L (21.0-32.0); CHLORIDE - SERUM 104 mmol/L (98-107); CREATININE - SERUM 0.8 mg/dL (0.6-1.3); MAGNESIUM - SERUM 2.1 mg/dL (1.8-2.4); PHOSPHOROUS 3.9 mg/dL (2.5-4.9); POTASSIUM - SERUM 4.1 mmol/L (3.5-5.1); PROTEIN - SERUM 6.9 g/dL (6.4-8.2); SODIUM 140 mmol/L (136-145); UREA NITROGEN 9 mg/dL (7-18); eGFR NON AFRICAN AMERICAN 75 mL/min (90-120)
[2021-02-03 10:10] LABS: GLUCOSE 64 mg/dL (74-106)
--- NOTE | 2021-02-03 11:14 | NUR ---
FSBS 97. NO INSULIN PER SLIDING SCALE.
--- NOTE | 2021-02-03 13:45 | NUR ---
FAMILY HERE TO VISIT WITH PATIENT.
[2021-02-03] MEDS ORDERED: ELIQUIS5 MG PO (14:33)
[2021-02-03] MEDS ORDERED: PROZAC10 MG PO (14:34)
[2021-02-03] MEDS ORDERED: CLEOCIN HCL300 MG PO (14:35)
--- NOTE | 2021-02-03 17:31 | MORECARE ---
CASE MANAGEMENT DISCHARGE SUMMARY PATIENT: SILVA BARKSDALE UNIT: [id number] ADM DATE: 01/30/21 AGE: 70 : 52 SEX: F ROOM/BED: D.2140 AUTHOR: INDRA,DOC PHYSICIAN: REFERRING PHYSICIAN: CAROL PARMAR MD DATE OF SERVICE: 02/03/21 Case Management Discharge Planning Summary COMMENTS ENTERED DATE: 02/03/21 17:30 CT COMMENT TYPE: Discharge Planning REVIEWER: Dane Hanson CM team informed that the patient desires [facility] for nursing care and PT. MICHELA signed and placed in chart. IMM explained, signed, and placed in chart. Clinical faxed to [facility]. Spoke with Nancy of [employer]. Nancy stated that SOC will be Friday. CM will continue to follow and will assist as needed with dc plans/needs DCP REVIEW SUMMARY ANTICIPATED D/C DATE: EXPECTED LOS : CASE STATUS: DCP Initiated INITIAL REVIEW: 01/30/2021 INITIAL REVIEWER: Dane Hanson FINAL DISCHARGE DISPOSITION: : FINAL REVIEWER: FINAL REVIEW DATE: DCP Focus Questions & Answers QUESTION: ANSWER : PATIENT: SILVA BARKSDALE ENCOUNTER: [id number] MEDICAL RECORD#: [id number] ADMISSION DATE: 01/30/2021 DISCHARGE DATE: ATTENDING MD: CAROL LOPEZ : AGE: 70 MARITAL STATUS: D DC PLAN ID: [id number] FACILITY: [facility] PRINTED ON: 02/03/21 17:31 CT All edits/amendments must be made on the electronic document DICTATION DATE: 02/03/211729 ENVIRONMENTAL PROGRAMS MANAGER: DM 02/03/211729 RPT#: [id number] DC DATE: STATUS: ADM IN [facility] [address] [place] [address] END OF REPORT
--- NOTE | 2021-02-03 19:00 | NUR ---
REPORT RECEIVED. PATIENT IS AAOX4, SITTING ON SIDE OF BED, SON AT BEDSIDE. NO S/S OF DISTRESS OBSERVED, RR EVEN AND UNLABORED ON 2.5L O2 VIA NC. RT CHEST PORT ACCESSED, PATENT, INFUSING NS @ 50ML/HR. PATIENT DENIES NEEDS AT THIS TIME. CL IN REACH, BED LOCKED AND LOWERED. DROPLET PRECAUTIONS MAINTAINED. WILL CPOC.
[2021-02-03 20:48] VITALS: BP 125/62
[2021-02-04 01:45] VITALS: BP 112/62
[2021-02-04 05:35] VITALS: BP 135/61
[2021-02-04 06:39] LABS: ALBUMIN 1.7 g/dL (3.4-5.0); ALKALINE PHOSPHATASE 98 U/L (30-120); ALT (SGPT) 12 U/L (10-68); BILIRUBIN - TOTAL 0.28 mg/dL (0.2-1.3); CALCIUM 8.2 mg/dL (8.5-10.1); CARBON DIOXIDE 26.9 mmol/L (21.0-32.0); CHLORIDE - SERUM 104 mmol/L (98-107); CREATININE - SERUM 0.7 mg/dL (0.6-1.3); MAGNESIUM - SERUM 1.8 mg/dL (1.8-2.4); PHOSPHOROUS 3.5 mg/dL (2.5-4.9); PROTEIN - SERUM 7.1 g/dL (6.4-8.2); SODIUM 139 mmol/L (136-145); UREA NITROGEN 10 mg/dL (7-18); eGFR NON AFRICAN AMERICAN 88 mL/min (90-120)
[2021-02-04 06:43] LABS: CALC OSMOLALITY 274 mosm/kg (275-300); POTASSIUM - SERUM 3.4 mmol/L (3.5-5.1)
[2021-02-04 06:45] LABS: GLUCOSE 56 mg/dL (74-106)
--- NOTE | 2021-02-04 07:00 | NUR ---
RECEIVED REPORT. ASSUMED CARE OF PATIENT. 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
--- NOTE | 2021-02-04 07:15 | NUR ---
PATIENT DENIES ANY S/S ASSOCIATED WITH HYPOGLYCEMIA. ENCOURAGED PATIENT TO CONSUME PEANUT BUTTER AND CRACKERS, PATIENT COMPLIANT WITH REQUEST.
[2021-02-04 07:34] LABS: BASOPHILS 0.9 % (0-2); EOSINOPHILS 1.7 % (0-7); HEMATOCRIT 24.1 % (36.0-48.0); HEMOGLOBIN 7.9 g/dL (12-16); LYMPHOCYTES 8.9 % (15-50); MCH 27.8 pg (26.0-34.0); MCHC 32.6 g/dL (31.0-37.0); MCV 85.2 fL (80.0-100.0); NEUTROPHILS 80.5 % (40-80); PLATELET COUNT 473 10x3/uL (130-400); RBC 2.84 10x6/uL (4.00-5.40); RDW 16.2 % (11.5-14.5); WBC 10.2 10x3/uL (4.8-10.8)
[2021-02-04 08:01] VITALS: BP 131/67
[2021-02-04 11:02] VITALS: BP 109/59
--- NOTE | 2021-02-04 14:30 | NUR ---
MEDICATED FOR PAIN.
--- NOTE | 2021-02-04 14:45 | NUR ---
CONSENTS SIGNED AND ON CHART FOR BRONCH ON 02/05/21.
--- NOTE | 2021-02-04 16:29 | NUR ---
FSBS 81. NO INSULIN ADMINISTERED PER SLIDING SCALE. DIETARY REQUEST PLACED FOR PATIENT AT THIS TIME.
--- NOTE | 2021-02-04 20:00 | NUR ---
INITIAL ROUNDS AND ASSESSMENT COMPLETED. PT RESTING IN BED. ALERT/ORIENTED. NO NEEDS VERBALIZED. IVF NS @ 50ML/HR INFUSING TO RIGHT CHEST PORT. O2 @ 2L/NC WITH SHALLOW RESPIRATIONS. SR PER TELEMETRY. PT WILL BE NPO AFTER MIDNIGHT FOR AM BRONCHOSCOPY.
[2021-02-04 20:26] VITALS: BP 118/62
--- NOTE | 2021-02-04 23:00 | NUR ---
ALL BEDTIME MEDS/ABT COMPLETED. PT RESTING IN BED. UP TO USE BSC WITH SBA. INSTRUCT ON NPO AT MIDNIGHT FOR AM BRONCHOSCOPY.
[2021-02-05 01:17] VITALS: BP 105/63
--- NOTE | 2021-02-05 03:41 | NUR ---
IV ABT INFUSING, PT WAS GIVEN PAIN MEDICATION FOR BACK PAIN 02/17. CURRENTLY RESTING WITH EYES CLOSED.
[2021-02-05 05:30] VITALS: BP 123/65
[2021-02-05 06:06] LABS: BASOPHILS 1.4 % (0-2); EOSINOPHILS 2.4 % (0-7); HEMATOCRIT 23.6 % (36.0-48.0); HEMOGLOBIN 7.6 g/dL (12-16); LYMPHOCYTES 9.7 % (15-50); MCH 27.1 pg (26.0-34.0); MCV 84.8 fL (80.0-100.0); MEAN PLATELET VOLUME 7.6 fL (7.4-10.4); MONOCYTES 7.8 % (2-11); NEUTROPHILS 78.7 % (40-80); PLATELET COUNT 475 10x3/uL (130-400); RBC 2.79 10x6/uL (4.00-5.40); RDW 16.4 % (11.5-14.5); WBC 9.1 10x3/uL (4.8-10.8)
--- NOTE | 2021-02-05 06:15 | NUR ---
PT HAS REMAINED NPO SINCE MIDNIGHT. C/O PAIN/DISCOMFORT TO BACK. MEDICATED WITH NORCO FOR PAIN. IVF INFUSING. CALL LIGHT IN REACH.
[2021-02-05 06:32] LABS: % SATURATION 11 % (15-55); IRON 14 ug/dl (35-150); TOTAL IRON BIND CAPACITY 123 ug/dl (260-445); UNSAT IRON BIND CAPACITY 109 ug/dl (150-375)
--- NOTE | 2021-02-05 07:00 | NUR ---
RECIEVED REPORT. ASSUMED CARE OF PATIENT. PATIENT REMAINS IN DROPLET ISOLATION FOR MRSA IN SPUTUM FROM PREVIOUS ADMISSION. PATIENT UNDERSTANDS SHE IS NPO FOR BRONCH TODAY. NO DISTRESS.
[2021-02-05 07:06] LABS: ALBUMIN 1.6 g/dL (3.4-5.0); ALKALINE PHOSPHATASE 101 U/L (30-120); ALT (SGPT) 11 U/L (10-68); BILIRUBIN - TOTAL 0.21 mg/dL (0.2-1.3); CALC OSMOLALITY 272 mosm/kg (275-300); CALCIUM 8.3 mg/dL (8.5-10.1); CARBON DIOXIDE 27.6 mmol/L (21.0-32.0); CHLORIDE - SERUM 104 mmol/L (98-107); CREATININE - SERUM 0.8 mg/dL (0.6-1.3); POTASSIUM - SERUM 3.8 mmol/L (3.5-5.1); PROTEIN - SERUM 7.1 g/dL (6.4-8.2); SODIUM 138 mmol/L (136-145); UREA NITROGEN 11 mg/dL (7-18); eGFR NON AFRICAN AMERICAN 75 mL/min (90-120)
[2021-02-05 07:09] LABS: GLUCOSE 70 mg/dL (74-106)
--- NOTE | 2021-02-05 08:58 | NUR ---
PATIENT IS NPO FOR BRONCHOSOPCY BETWEEN 10-11 TODAY. NO AM MEDICATIONS ADMINISTERED.
[2021-02-05 09:43] VITALS: BP 129/65
--- NOTE | 2021-02-05 10:40 | NUR ---
PATIENT LEFT UNIT FOR BRONCH AT THIS TIME. NO DISTRESS.
--- NOTE | 2021-02-05 11:47 | NUR ---
PT ARRIVED TO PACU A&OX3 WITH 1 GRAM OF VANCOMYCIN IN 250ML OF NS INFUSING. VSS.
--- NOTE | 2021-02-05 11:52 | NUR ---
PATIENT REMAINS OFF UNIT FROM HAVING BRONCHOSCOPY.
--- NOTE | 2021-02-05 12:25 | NUR ---
PATIENT RETURNED TO UNIT FROM RECOVERY S/P BRONCH.
--- NOTE | 2021-02-05 15:01 | NUR ---
patient refused pt
--- NOTE | 2021-02-05 16:25 | NUR ---
1615 1ST UINT OF PRBCs ORDERED ARE NOW INFUSING. PATIENT TOLERATING PRBCs WELL. NO S/S TRANFUSION REACTION.
[2021-02-05 17:43] VITALS: BP 99/62
[2021-02-05 19:30] VITALS: BP 115/62
--- NOTE | 2021-02-05 20:00 | NUR ---
REPORT RECEIVED. PT A&O, UP IN BED WITH FAMILY AT BEDSIDE. NO S/S OF DISTRESS OBSERVED. RR EVEN & UNLABORED ON 2L. SR 81 ON TELE. INFUSAPORT TO R CHEST INFUSING NS @ 50 + ATB. BED LOCKED AND LOWERED, CL IN REACH. WILL CONT POC.
[2021-02-06] VITALS: BP 110/62
[2021-02-06 06:39] VITALS: BP 121/52
[2021-02-06 08:54] LABS: BASOPHILS 0.8 % (0-2); EOSINOPHILS 1.9 % (0-7); LYMPHOCYTES 9.2 % (15-50); MCH 27.4 pg (26.0-34.0); MCHC 32.5 g/dL (31.0-37.0); MCV 84.3 fL (80.0-100.0); MEAN PLATELET VOLUME 7.2 fL (7.4-10.4); MONOCYTES 8.2 % (2-11); NEUTROPHILS 79.9 % (40-80); PLATELET COUNT 418 10x3/uL (130-400); RDW 15.8 % (11.5-14.5); WBC 10.9 10x3/uL (4.8-10.8)
[2021-02-06 08:58] LABS: HEMATOCRIT 33.3 % (36.0-48.0); HEMOGLOBIN 10.8 g/dL (12-16); RBC 3.95 10x6/uL (4.00-5.40)
[2021-02-06 09:00] VITALS: BP 117/78
[2021-02-06 09:04] LABS: ALBUMIN 1.8 g/dL (3.4-5.0); ALKALINE PHOSPHATASE 108 U/L (30-120); ALT (SGPT) 9 U/L (10-68); BILIRUBIN - TOTAL 0.36 mg/dL (0.2-1.3); CALC OSMOLALITY 271 mosm/kg (275-300); CALCIUM 8.2 mg/dL (8.5-10.1); CARBON DIOXIDE 25.8 mmol/L (21.0-32.0); CHLORIDE - SERUM 101 mmol/L (98-107); CREATININE - SERUM 0.7 mg/dL (0.6-1.3); POTASSIUM - SERUM 3.8 mmol/L (3.5-5.1); PROTEIN - SERUM 7.7 g/dL (6.4-8.2); SODIUM 136 mmol/L (136-145); UREA NITROGEN 10 mg/dL (7-18); eGFR NON AFRICAN AMERICAN 88 mL/min (90-120)
[2021-02-06 09:05] LABS: GLUCOSE 115 mg/dL (74-106)
[2021-02-06] MEDS ORDERED: IPRAT-ALBUT 0.5-3 ML UPD (12:01)
[2021-02-06] MEDS ORDERED: AUGMENTIN 875-11 TAB PO (12:01)
--- NOTE | 2021-02-06 14:30 | NUR ---
PT'S INFUSAPORT DE-ACCESSED AFTER FLUSHING AND HEP LOCKING. TELEMETRY REMOVED.
--- NOTE | 2021-02-06 15:56 | MORECARE ---
CASE MANAGEMENT DISCHARGE SUMMARY PATIENT: SILVA BARKSDALE UNIT: [id number] ADM DATE: 01/30/21 AGE: 70 : 52 SEX: F ROOM/BED: D.2140 AUTHOR: INDRA,DOC PHYSICIAN: REFERRING PHYSICIAN: CAROL PARMAR MD DATE OF SERVICE: 02/06/21 Case Management Discharge Planning Summary COMMENTS ENTERED DATE: 02/03/21 17:30 CT COMMENT TYPE: Discharge Planning REVIEWER: Dane Hanson CM team informed that the patient desires [facility] for nursing care and PT. MICHELA signed and placed in chart. IMM explained, signed, and placed in chart. Clinical faxed to [facility]. Spoke with Nancy of [facility]. Nancy stated that SOC will be Friday. CM will continue to follow and will assist as needed with dc plans/needs DCP REVIEW SUMMARY ANTICIPATED D/C DATE: EXPECTED LOS : CASE STATUS: DCP Initiated INITIAL REVIEW: 01/30/2021 INITIAL REVIEWER: Dane Hanson FINAL DISCHARGE DISPOSITION: : FINAL REVIEWER: FINAL REVIEW DATE: DCP Focus Questions & Answers QUESTION: ANSWER : PATIENT: SILVA BARKSDALE ENCOUNTER: [id number] MEDICAL RECORD#: [id number] ADMISSION DATE: 01/30/2021 DISCHARGE DATE: 02/06/2021 ATTENDING MD: CAROL LOPEZ : AGE: 70 MARITAL STATUS: D DC PLAN ID: [id number] FACILITY: [facility] PRINTED ON: 02/06/21 15:55 CT All edits/amendments must be made on the electronic document DICTATION DATE: 02/06/21 1555 BONDACTOR MACHINE OPERATOR: TAMI 02/06/21 1555 RPT#: [id number] DC DATE:02/06/21 STATUS: DIS IN [facility] [address] [place] [address] END OF REPORT
--- NOTE | 2021-02-06 16:07 | MORECARE ---
CASE MANAGEMENT DISCHARGE SUMMARY PATIENT: SILVA BARKSDALE UNIT: [id number] ADM DATE: 01/30/21 AGE: 70 : 52 SEX: F ROOM/BED: D.2140 AUTHOR: INDRA,DOC PHYSICIAN: REFERRING PHYSICIAN: CAROL PARMAR MD DATE OF SERVICE: 02/06/21 Case Management Discharge Planning Summary COMMENTS ENTERED DATE: 02/03/21 17:30 CT COMMENT TYPE: Discharge Planning REVIEWER: Dane Hanson CM team informed that the patient desires [facility] for nursing care and PT. MICHELA signed and placed in chart. IMM explained, signed, and placed in chart. Clinical faxed to [facility]. Spoke with Nancy of [facility]. Nancy stated that SOC will be Friday. CM will continue to follow and will assist as needed with dc plans/needs DCP REVIEW SUMMARY ANTICIPATED D/C DATE: 02/06/2021 EXPECTED LOS : 7 CASE STATUS: DCP Initiated INITIAL REVIEW: 01/30/2021 INITIAL REVIEWER: Dane Hasnon FINAL DISCHARGE DISPOSITION: : FINAL REVIEWER: FINAL REVIEW DATE: DCP Focus Questions & Answers QUESTION: ANSWER : PATIENT: SILVA BARKSDALE ENCOUNTER: [id number] MEDICAL RECORD#: [id number] ADMISSION DATE: 01/30/2021 DISCHARGE DATE: 02/06/2021 ATTENDING MD: CAROL LOPEZ : AGE: 70 MARITAL STATUS: D DC PLAN ID: [id number] FACILITY: [facility] PRINTED ON: 02/06/21 16:07 CT All edits/amendments must be made on the electronic document DICTATION DATE: 02/06/21 160 SOCIAL ECONOMIST: DM 02/06/21 160 RPT#: [id number] DC DATE:02/06/21 STATUS: DIS IN [facility] [address] [place] [address] END OF REPORT
--- NOTE | 2021-02-06 16:19 | MORECARE ---
CASE MANAGEMENT DISCHARGE SUMMARY PATIENT: SILVA BARKSDALE UNIT: [id number] ADM DATE: 01/30/21 AGE: 70 : 54 SEX: F ROOM/BED: D.2140 AUTHOR: DONNA BURRELL PHYSICIAN: REFERRING PHYSICIAN: CAROL PARMAR MD DATE OF SERVICE: 02/06/21 Case Management Discharge Planning Summary COMMENTS ENTERED DATE: 02/06/21 16:05 CT COMMENT TYPE: Discharge Planning REVIEWER: Luciana De Jesus DCP complete for this patient by ENDER Hanson earlier this week. Pt received discharge instructions today. Pt states that she needs a portable O2 and nebulizer for discharge. Pt states that she uses [facility] for her home O2 needs who were contacted for the delivery of portable O2. CM was informed by DME that they were not able to supply nebulizer a this time. [employer] was able to deliver nebulizer to the hospital prior to discharge. [facility] contacted for delay in SOC for HH and PT due to in the family and unavailability of pt. Pt verbalized understanding of IM and MICHELA, signed copies placed in chart. ENTERED DATE: 02/03/21 17:30 CT COMMENT TYPE: Discharge Planning REVIEWER: Dane Hanson CM team informed that the patient desires [facility] for nursing care and PT. MICHELA signed and placed in chart. IMM explained, signed, and placed in chart. Clinical faxed to [employer] [facility]. Spoke with Nancy of [employer]. Nancy stated that SOC will be Friday. CM will continue to follow and will assist as needed with dc plans/needs DCP REVIEW SUMMARY ANTICIPATED D/C DATE: 02/06/2021 EXPECTED LOS : 7 CASE STATUS: DCP Initiated INITIAL REVIEW: 01/30/2021 INITIAL REVIEWER: Dane Hanson FINAL DISCHARGE DISPOSITION: : FINAL REVIEWER: FINAL REVIEW DATE: DCP [employer] Questions & Answers QUESTION: ANSWER : PATIENT: SILVA BARKSDALE ENCOUNTER: [id number] MEDICAL RECORD#: [id number] ADMISSION DATE: 01/30/2021 DISCHARGE DATE: 02/06/2021 ATTENDING MD: CAROL LOPEZ : AGE: 70 MARITAL STATUS: D DC PLAN ID: [id number] FACILITY: [facility] PRINTED ON: 02/06/21 16:19 CT All edits/amendments must be made on the electronic document DICTATION DATE: 02/06/211618 ASSEMBLER WET WASH: TAMI 02/06/211618 RPT#: [id number] DC DATE:02/06/21 STATUS: DIS IN [facility] [address] [place] [address] END OF REPORT
--- NOTE | 2021-02-06 18:36 | MORECARE ---
CASE MANAGEMENT DISCHARGE SUMMARY PATIENT: SILVA BARKSDALE UNIT: [id number] ADM DATE: 01/30/21 AGE: 70 : 54 SEX: F ROOM/BED: D.2140 AUTHOR: DONNA BURRELL PHYSICIAN: REFERRING PHYSICIAN: CAROL PARMAR MD DATE OF SERVICE: 02/06/21 Case Management Discharge Planning Summary COMMENTS ENTERED DATE: 02/06/21 16:05 CT COMMENT TYPE: Discharge Planning REVIEWER: Luciana De Jesus DCP complete for this patient by ENDER Hanson earlier this week. Pt received discharge instructions today. Pt states that she needs a portable O2 and nebulizer for discharge. Pt states that she uses [facility] for her home O2 needs who were contacted for the delivery of portable O2. CM was informed by DME that they were not able to supply nebulizer a this time. [employer] was able to deliver nebulizer to the hospital prior to discharge. [facility] contacted for delay in SOC for HH and PT due to in the family and unavailability of pt. Pt verbalized understanding of IM and MICHELA, signed copies placed in chart. ENTERED DATE: 02/03/21 17:30 CT COMMENT TYPE: Discharge Planning REVIEWER: Dane Hanson CM team informed that the patient desires [facility] for nursing care and PT. MICHELA signed and placed in chart. IMM explained, signed, and placed in chart. Clinical faxed to [employer]. Spoke with Nancy of [employer]. Nancy stated that SOC will be Friday. CM will continue to follow and will assist as needed with dc plans/needs DCP REVIEW SUMMARY ANTICIPATED D/C DATE: 02/06/2021 EXPECTED LOS : 7 CASE STATUS: DCP Initiated INITIAL REVIEW: 01/30/2021 INITIAL REVIEWER: Dane Hanson FINAL DISCHARGE DISPOSITION: : FINAL REVIEWER: FINAL REVIEW DATE: DCP [employer] Questions & Answers QUESTION: ANSWER : PATIENT: SILVA BARKSDALE ENCOUNTER: [id number] MEDICAL RECORD#: [id number] ADMISSION DATE: 01/30/2021 DISCHARGE DATE: 02/06/2021 ATTENDING MD: CAROL LOPEZ : AGE: 70 MARITAL STATUS: D DC PLAN ID: [id number] FACILITY: [facility] PRINTED ON: 02/06/21 18:36 CT All edits/amendments must be made on the electronic document DICTATION DATE: 02/06/211835 FRUIT THINNER: TAMI 02/06/211835 RPT#: [id number] DC DATE:02/06/21 STATUS: DIS IN [facility] [address] [place] [address] END OF REPORT
[2021-02-07 15:12] LABS: FUNGUS STAIN Final report (())
[2021-02-07 17:09] LABS: ACID FAST SMEAR Negative (()); AFB SPECIMEN PROCESSING Concentration (())
== END 2021-02-06 15:44 | disposition home or self-care (01) | DRG 299 ==
LOC: D.ER 04:04 → D.EDHOLD 06:48 → OBSVTIME 06:48 → D.M2 07:15
PROVIDERS: Family Medicine; Internal Medicine Pulmonary Disease; ADMIT Emergency Medicine; ATTEND Emergency Medicine
PROC: 0B9D8ZX Drainage of Right Middle Lung Lobe, Via Natural or Artificial Opening Endoscopic, Diagnostic (ICD-10-PCS; principal; 2021-02-05 11:00)
DX: I82.A11 Acute embolism and thrombosis of right axillary vein (principal); J15.212 Pneumonia due to Methicillin resistant Staphylococcus aureus; J98.11 Atelectasis; I82.90 Acute embolism and thrombosis of unspecified vein; Y95 Nosocomial condition; Z85.118 Personal history of other malignant neoplasm of bronchus and lung; Z79.84 Long term (current) use of oral hypoglycemic drugs; E78.5 Hyperlipidemia, unspecified; I25.10 Atherosclerotic heart disease of native coronary artery without angina pectoris; L40.9 Psoriasis, unspecified; M19.90 Unspecified osteoarthritis, unspecified site; K21.9 Gastro-esophageal reflux disease without esophagitis; Z95.5 Presence of coronary angioplasty implant and graft; Z98.890 Other specified postprocedural states; E11.65 Type 2 diabetes mellitus with hyperglycemia; R79.82 Elevated C-reactive protein (CRP); R53.81 Other malaise; D50.9 Iron deficiency anemia, unspecified; I48.0 Paroxysmal atrial fibrillation; J43.9 Emphysema, unspecified